=== PATIENT | female | born 1930 | race Caucasian/White ===

== ENCOUNTER 2016-07-31 15:58 | Emergency (ER) | payer MEDICARE ==
[2016-07-31 16:57] VITALS: BP 122/55
--- NOTE | 2016-07-31 17:21 | UC ---
Throat Pain/Nasal Miles HPI - HPI Summary HPI Summary: complaint of nasal congestion and cough that started approx 1 week ago cough has been worsening for the last 3 days producitve cough with thick sputum at times has been hearing wheezing for 2 days denies fever and chills denies shortness of breath and edema not taking any medications for symptoms - History of Current Complaint Chief Complaint: UCGeneralIllness Stated Complaint: URI Time Seen by Provider: 07/31/16 17:06 - Allergies/Home Medications Allergies/Adverse Reactions: Allergies Allergy/AdvReac Type Severity Reaction Status Date / Time Morphine Allergy Nausea And Verified 07/31/16 16:41 Vomiting PMH/Surg Hx/FS Hx/Imm Hx Endocrine History Of: Reports: Thyroid Disease Cardiovascular History Of: Reports: Hypertension - ON MEDICATION FOR Cancer History Of: Denies: Breast Cancer - Surgical History Surgical History: Yes Surgery Procedure, Year, and Place: RIGHT KNEE REPLACEMENT. LEFT KNEE REPLACEMENT. 1/2 RIB REMOVED. KNEE REVISION - Social History Alcohol Use: None Substance Use Type: None Smoking Status (MU): Former Smoker Amount Used/How Often: 1/2 PPD X 30 YEARS When Did the Patient Quit Smoking/Using Tobacco: 1982 - Immunization History Most Recent Influenza Vaccination: 2016 Review of Systems Constitutional: Negative Skin: Negative Eyes: Negative ENT: Nasal Discharge Respiratory: Cough Cardiovascular: Negative Gastrointestinal: Negative Genitourinary: Negative Motor: Negative Neurovascular: Negative Musculoskeletal: Negative Neurological: Negative Psychological: Negative All Other Systems Reviewed And Are Negative: Yes Physical Exam Triage Information Reviewed: Yes Appearance: No Pain Distress, Well-Nourished, Obese Vital Signs: Initial Vital Signs Temp 99 F 07/31/16 16:44 Pulse 68 07/31/16 16:44 Resp 20 07/31/16 16:44 BP 122/55 07/31/16 16:44 Pulse Ox 94 07/31/16 16:44 Vital Signs Reviewed: Yes Eyes: Positive: Conjunctiva Clear ENT: Positive: Pharyngeal erythema, Nasal congestion, Nasal drainage, TMs normal Neck: Positive: Supple, No Lymphadenopathy Respiratory: Positive: Decreased breath sounds, Wheezing - throughout Cardiovascular: Positive: RRR, No Murmur Abdomen Description: Positive: Nontender, Soft Bowel Sounds: Positive: Present Musculoskeletal: Positive: No Edema Neurological: Positive: Alert Psychological Exam: Normal Skin Exam: Normal Re-Evaluation - Re-Evaluation First Eval Change: Improved - less wheezing throughout Throat Pain/Nasal Course/Dx - Differential Dx/Diagnosis Differential Diagnosis/HQI/PQRI: URI, Other - bronchitis Provider Diagnoses: bronchitis Discharge - Discharge Plan Condition: Stable Disposition: HOME Prescriptions: Albuterol HFA INHALER* [Ventolin HFA Inhaler*] 2 puff INH Q4H PRN #1 mdi PRN Reason: Wheezing DOXYcycline CAP(*) [DOXYcycline 100MG CAP(*)] 100 mg PO BID #20 cap Spacer/Aerosol-Holding Chamber [Aerochamber Mv] 1 mis XX Q4HR #1 mis Patient Education Materials: Acute Bronchitis (ED), How to Use a Metered-Dose Inhaler and a Spacer (ED) Referrals: Zev Zhao MD [Primary Care Provider] - Additional Instructions: Please take antibiotic as directed Use your albuterol inhaler every 4-6 hours when needed for wheezing, shortness of breath or uncontrolled coughing. Increase fluids and rest Take acetaminophen or ibuprofen for fever or pain Please review your discharge instructions. If your symptoms do not improve please call your primary care provider or return to urgent care.
[2016-07-31] MEDS ORDERED: Albuterol/Ipratropium NEB.SOL* Albuterol 2.5 MG/Ipratropium 0.5 MG 3 ML INH ONE (17:28)
--- NOTE | 2016-07-31 18:29 | RAD ---
INDICATION: Cough COMPARISON: Chest x-ray dated September 15, 2015 TECHNIQUE: PA and lateral views of the chest were obtained. FINDINGS: The heart and mediastinum are normal in size and contour. Stable coarse calcification is seen overlying the aortic arch. The lungs are grossly clear. There is no evidence of large pleural effusion. Visualized bones are normal for the patient's age. There is no radiographic evidence of free air beneath the diaphragm IMPRESSION: No radiographic evidence of acute cardiopulmonary disease.
== END 2016-07-31 19:00 | disposition home or self-care (01) ==
LOC: UCEAST 15:58
DX: J40 Bronchitis, not specified as acute or chronic (principal); I10 Essential (primary) hypertension; E66.9 Obesity, unspecified; E07.9 Disorder of thyroid, unspecified; Z96.653 Presence of artificial knee joint, bilateral; Z87.891 Personal history of nicotine dependence; Z88.5 Allergy status to narcotic agent
CPT/HCPCS: 71020; 99212; A9270-GY; G0463

== ENCOUNTER 2017-11-11 07:10 | Emergency (ER) | payer MEDICARE ==
[2017-11-11 07:22] VITALS: BP 144/94
--- NOTE | 2017-11-11 07:28 | UC ---
Ear Complaint HPI - HPI Summary HPI Summary: An 87 y/o F presents to [facility] [place] with c/o intermittent inner and outer L ear pain onset yesterday. Denies rash, fever, eye pain, rhinorrhea, sore throat, cough, chest congestion. Pt took Motrin yesterday to no relief. PMHx: shingles across back. Pt states this does not feel similar to prev episodes of shingles. She has had a shingles shot. Pt lives alone in senior housing. This is SooYoung twila Medeiros, documenting for attending, Dr. Deuce Mccain MD. - History of Current Complaint Chief Complaint: UCEar Stated Complaint: EAR PAIN Time Seen by Provider: 11/11/17 07:19 Hx Obtained From: Patient Hx Last Menstrual Period: na Onset/Duration: Sudden Onset, Lasting Days - yesterday, Still Present Severity Currently: Severe Pain Intensity: 10 Pain Scale Used: 0-10 Numeric Alleviating Factors: Other (Noted In Comments) - neg: Motrin - Allergies/Home Medications Allergies/Adverse Reactions: Allergies Allergy/AdvReac Type Severity Reaction Status Date / Time morphine Allergy Intermediate Nausea Verified 11/11/17 07:23 PMH/Surg Hx/FS Hx/Imm Hx Previously Healthy: No - arthritis; Cardiovascular History: Hypertension - Surgical History Surgical History: Yes Surgery Procedure, Year, and Place: RIGHT KNEE REPLACEMENT. LEFT KNEE REPLACEMENT. 1/2 RIB REMOVED. KNEE REVISION - Family History Known Family History: Positive: Other - neg: breast CA - Social History Occupation: Retired Lives: Alone Alcohol Use: None Substance Use Type: None Smoking Status (MU): Former Smoker Amount Used/How Often: 1/2 PPD X 30 YEARS When Did the Patient Quit Smoking/Using Tobacco: 1982 - Immunization History Most Recent Influenza Vaccination: 2016 Review of Systems Constitutional: Other - neg: fever Skin: Other - neg: rash Eyes: Other - neg: eye pain ENT: Ear Ache - L ear pain, Other - neg: rhinorrhea, sore throat Respiratory: Other - neg: chest congestion, cough All Other Systems Reviewed And Are Negative: Yes Physical Exam - Summary Physical Exam Summary: General: well-appearing, intermittent periods of mild pain distress Skin: warm, color reflects adequate perfusion, dry, no visible rash, not tender to palpation Head: normal Eyes: EOMI, ELIO ENT: debris in L ear canal, TMs nml, L occipital parietal pain Neck: supple, nontender Respiratory: CTA, breath sounds present Cardiovascular: RRR Abdomen: soft, nontender Bowel: present Musculoskeletal: normal, strength/ROM intact Neurological: sensory/motor intact, A&O x3 Psychological: affect/mood appropriate Triage Information Reviewed: Yes Vital Signs: Initial Vital Signs Temp 99.9 F 11/11/17 07:16 Pulse 59 11/11/17 07:16 Resp 22 11/11/17 07:16 BP 144/94 11/11/17 07:16 Pulse Ox 95 11/11/17 07:16 Vital Signs Reviewed: Yes Diagnostics - Laboratory Diagnostic Studies Completed/Ordered: BRAIN CT IMPRESSION, as read by radiologist: No acute intracranial pathology. [facility] physician has reviewed this report and agrees. Re-Evaluation - Re-Evaluation 1 Re-Evaluation Time: 08:28 Change: Improved - midly Comment: Discussed img results with pt. Pt voiced understanding. Pt thinks the Tylenol helped. Ear Complaint Course/Dx - Course Course Of Treatment: BP noted and advised to follow up with PCP. Medications reviewed. Allergies noted. POSSSIBLE SHINGLES BASED ON THE NATURE OF THE PAIN. DISCUSSED THIS WITH THE PATIENT. RX OE EAR ABX AND VALACYCLOVIR PO. F/U PMD; RECHECK SOONER IF WORSE. - Differential Dx/Diagnosis Provider Diagnoses: LEFT OTITIS EXTERNA Discharge - Sign-Out/Discharge Documenting (check all that apply): Patient Departure - Discharge Plan Condition: Stable Disposition: HOME Prescriptions: Ciprofloxacin/Hydrocortisone [Cipro Hc Otic Suspension] 4 drop OT BID #10 ml Valacyclovir HCl [Valacyclovir] 1 gm PO TID #21 tab Patient Education Materials: Otitis Externa (ED), Acute Headache (ED) Referrals: Zev Zhao MD [Primary Care Provider] - Additional Instructions: FOLLOW UP WITH YOUR DOCTOR. YOU ARE BEING TREATED FOR BOTH AND EXTERNAL EAR CANAL INFECTION AND SHINGLES. GET RECHECKED FOR ANY WORSENING OF YOUR CONDITION OR QUESTIONS OR CONCERNS. Your blood pressure was elevated during todays visit; please follow up with your primary care provider within a week for further evaluation. - Billing Disposition and Condition Condition: STABLE Disposition: Home
[2017-11-11] MEDS ORDERED: Acetaminophen TAB* 325 MG PO ONE (07:33)
--- NOTE | 2017-11-11 08:21 | RAD ---
HISTORY: left occipital pain COMPARISONS: December 20, 2010 TECHNIQUE: Multiple contiguous axial CT scans were obtained of the head without intravenous contrast. FINDINGS: HEMORRHAGE/INFARCT: There is no hemorrhage or acute infarct. MASSES/SHIFT: There is no mass or shift. EXTRA-AXIAL SPACES: There are no extra-axial fluid collections. SULCI AND VENTRICLES: The sulci and ventricles are normal in size and position for the patient's stated age. CEREBRUM: There are no focal parenchymal abnormalities. BRAINSTEM: There are no focal parenchymal abnormalities. CEREBELLUM: There are no focal parenchymal abnormalities. VESSELS: The vessels are grossly normal. PARANASAL SINUSES: The paranasal sinuses are clear. ORBITS: The orbits are unremarkable. BONES AND SOFT TISSUE: No bone or soft tissue abnormalities are noted. OTHER: None IMPRESSION: NO ACUTE INTRACRANIAL PATHOLOGY.
== END 2017-11-11 08:44 | disposition home or self-care (01) ==
LOC: UCEAST 07:10
DX: H60.92 Unspecified otitis externa, left ear (principal); I10 Essential (primary) hypertension; Z87.891 Personal history of nicotine dependence; Z88.5 Allergy status to narcotic agent
CPT/HCPCS: 70450; 99212; A9270-GY; G0463

== ENCOUNTER 2018-06-24 10:14 | Emergency (ER) | payer MEDICARE ==
--- OUTSIDE RECORDS SUMMARY | 2018-06-24 10:19 | XMS REPORT | Continuity of Care Document ---
:1930 External Reference #:[id number] Author Name Bonny Gimenez Care Team Providers Name Role Phone Zev Zhao III, MD Primary Care Physician Unavailable Payers Date Identification Numbers Payment Provider Subscriber Expires: 2016 Policy Number: [id number] Medicare Faizan Moira Bai PayID: [id number] [address] [place] [address] Policy Number: [id number] [facility] Today Options Faizan B Yoana PayID: [id number] [address] [address] Attn: [place] [address] Advance Directives Description No Information Available Problems Date Description Provider Status Onset: 01/16/2011 Pure hypercholesterolemia Zev Zhao M.D. Active Onset: 12/01/2010 Type 2 diabetes mellitus Zev Zhao M.D. Active Onset: 12/01/2010 Benign essential hypertension Zev Zhao M.D. Active Onset: 12/01/2010 Hypothyroidism Zev Zhao M.D. Active Onset: 12/22/2010 Benign paroxysmal positional vertigo Zev Zhao M.D. Active Onset: 09/15/2015 Essential hypertension Zev Zhao M.D. Active Family History Description No Information Available Social History Type Date Description Comments Sex Unknown Marital Status Cigarette Use Quit 27 Years Ago ETOH Use Denies alcohol use Tobacco Use Start: Unknown End: Patient is a former Unknown smoker Smoking Status Reviewed: 06/16/18 Patient is a former smoker Exercise Exercises sporadically active around her Type/Frequency house Allergies, Adverse Reactions, Alerts Date Description Reaction Status Severity Comments 01/06/2007 Morphine Active Nausea Medications Medication Date Status Form Strength Qnty SIG Indications Ordering Provider Irbesartan-Hydroch 11/22 Active Tablets 150-12.5m 90tab 1 by mouth Zev Wang lorothiazide /2017 g s every day Patrick Zhao Benzonatate 08/01 Active Capsules 100mg 30cap 1-2 tab by J20.9 Zev Wang /2016 s mouth Cece, three M.D. times a day as needed for cough Furosemide 01/04 Active Tablets 20mg 24tab Take One Zev EPete s Tablet By Jerry Zhao as M.D. Directed Three Times A Week Blood Pressure 10/01 Active Kit 1unit dx I10 I10 Zev Wang Monitor s Cece, Automatic With M.DPete Large Cuff Levothyroxine 11/08 Active Tablets 50mcg 90tab Take One eZv Wang Sodium s Tablet By Cece Mouth Once M.D. Daily Potassium Chloride 05/25 Active Tablets 8Meq 270ta Take 3 Zev E. ER ER bs Tablets By Cece, Mouth Once M.D. Daily Amlodipine 02/20 Active Tablets 10mg 90tab take one Zev Wang Besylate s tablet by Cece, mouth once M.D. daily Simvastatin 03/04 Active Tablets 10mg 90tab Take One Zev E. /2007 s Tablet By Cece Mouth Once M.D. Daily AT Bedtime Oscal 500/200 D-3 09/01 Active Tablets 200D-3 60tab qd Zev EPete /2007 s Patrick Zhao Multi-Vitamin Active Tablets 1 PO qd Zev E. / Patrick Zhao Vit C Active Tablets 250mg 1 PO qd Zev E. / Patrick Zhao Fish Oil Burp-Less Active Capsules 1000mg 1 by mouth Unknown /0000 every day Oxybutynin Active Tablets 5mg take one Unknown Chloride tablet by mouth twice a day Benzonatate 09/14 Hx Capsules 100mg 30cap 1-2 tab by J20.9 Zev EPete /2015 s mouth Cece, - three M.D. 10/09 times day as needed Proair HFA 09/14 Hx Aerosol 108(90Bas 1unit 2 puffs by J20.9 Zev Wang e) s mouth four Cece, - mcg/Act times a M.D. 11/25 day needed Valsartan-Hydrochl 08/29 Hx Tablets 160-25mg 90tab take one Zev Wang orothiazide s tablet by Cece, - mouth once M.D. 11/22 Valsartan/Hydrochl 06/25 Hx Tablets 160-25mg 90tab 1 po qd Zev Wang orothiazide Isaias Inman M.D. 08/29 Norvasc 02/05 Hx Tablets 10mg 30tab 1 po qd Zev Wang /2006 Isaias Inman M.D. 02/20 Medrol Dosepak 01/09 Hx Tablets 4mg 1tabs per Zev Wang /2006 Isaias Real M.D. 02/05 Zyrtec 01/06 Hx Tablets 10mg 7tabs 1 po qd Zev Wang prn Isaias Zhao M.D. 09/01 Synthroid 11/21 Hx Tablets 50McG 90tab 1 po qd Zev Wang /2006 Isaias Inman M.D. 11/08 E-400 Hx Capsules 400Unit Other /0000 Physician - Practices 11/12 Potassium Chloride Hx Tablets 8Meq 270ta 3 PO qd Zev E. SR / ER bs Isaias Zhao M.D. 05/25 Lorazepam Hx Tablets 0.5mg 20tab 1 po tid Unknown /0000 s prn - dizziness 06/04 Diovan Hx Tablets 160mg 90tab Take 1 Zev E. / s Tablet By Cece - Mouth Once M.D. 06/25 Hydrochlorothiazid Hx Tablets 50mg 90tab take 1 Zev E. e s tablet by Cece, - mouth once M.D. 06/25 Vesicare Hx Tablets 5mg 1 by mouth Unknown /0000 every day - 06/16 Doxycycline 00 Hx Capsules 100mg one tablet Unknown Hyclate /0000 twice - daily for 04/10 10 days. Ventolin HFA Hx Aerosol 108(90Bas 2 puffs by Unknown /0000 e) mouth four - mcg/Act times a 11/25 day needed Immunizations CPT Code Status Date Vaccine Lot # [id number] Given 01/31/2018 Fluzone High Dose 17186 Given 01/18/2017 Influenza Virus Vaccine, Quadrivalent, Split, Preservative Free 68304 Given 07/26/2016 Zoster (Zostavax) 79868 Given 01/20/2015 Influenza Virus Vaccine, Quadrivalent, Split, Preservative Free 24715 Given 10/04/2014 Pneumococcal Conjugate Vaccine 13 Valent For [id number] Intramuscular Use 36508 Given 01/04/2014 Fluzone High Dose Q2038 Given 12/25/2012 Fluzone Vaccine 53695 Given 06/24/2012 Tdap - Tetanus/Diptheria/Acellular Pertussis [id number] Q2038 Given 01/09/2012 Fluzone Vaccine [id number] 03473 Given 01/08/2011 Influenza Virus 3Yrs & Over 20374 Given 05/05/2009 Influenza Virus Vaccine, Pandemic Formulation 14983 Given 05/05/2009 Administration Swine Flu Shot 75541 Given 01/15/2008 Influenza Virus 3Yrs & Over 66548 Given 02/05/2007 Influenza Virus 3Yrs & Over 41057 Given 01/20/2002 Pneumovax (History By Patient) 90586 Given 05/09/2001 Td (History By Patient) Vital Signs Date Vital Result Comment 06/16/2018 3:59pm Height 60.5 inches 5'0.50" Weight 232.00 lb Heart Rate 68 /min BP Systolic Sitting 145 mmHg 142/74 BP Diastolic Sitting 78 mmHg 142/74 Respiratory Rate 16 /min BMI (Body Mass Index) 44.6 kg/m2 12/05/2017 3:10pm Height 60.5 inches 5'0.50" Weight 234.00 lb Heart Rate 60 /min BP Systolic Sitting 122 mmHg BP Diastolic Sitting 74 mmHg O2 % BldC Oximetry 96 % BMI (Body Mass Index) 44.9 kg/m2 11/26/2017 3:53pm Height 61 inches 5'1" Weight 240.00 lb Heart Rate 50 /min BP Systolic 110 mmHg BP Diastolic 68 mmHg BP Systolic Sitting 110 mmHg BP Diastolic Sitting 68 mmHg O2 % BldC Oximetry 96 % BMI (Body Mass Index) 45.3 kg/m2 04/11/2017 9:36am Weight 230.00 lb Heart Rate 67 /min BP Systolic Sitting 118 mmHg BP Diastolic Sitting 70 mmHg Body Temperature 97.3 F O2 % BldC Oximetry 97 % 10/10/2016 11:06am Weight 226.00 lb Heart Rate 56 /min BP Systolic Sitting 132 mmHg BP Diastolic Sitting 64 mmHg 08/01/2016 2:31pm Weight 220.00 lb Heart Rate 72 /min BP Systolic Sitting 128 mmHg BP Diastolic Sitting 84 mmHg Respiratory Rate 14 /min Body Temperature 97.6 F O2 % BldC Oximetry 96 % 04/10/2016 1:58pm Weight 222.00 lb Heart Rate 60 /min BP Systolic Sitting 110 mmHg BP Diastolic Sitting 70 mmHg O2 % BldC Oximetry 96 % 01/05/2016 10:55am Weight 228.00 lb Heart Rate 68 /min BP Systolic Sitting 154 mmHg BP Diastolic Sitting 62 mmHg Body Temperature 97.7 F O2 % BldC Oximetry 97 % 11/03/2015 4:33pm Weight 229.00 lb Heart Rate 66 /min BP Systolic Sitting 164 mmHg BP Diastolic Sitting 74 mmHg Body Temperature 96.3 F 10/10/2015 1:29pm Height 61 inches 5'1" Weight 225.00 lb Heart Rate 66 /min BP Systolic Sitting 122 mmHg BP Diastolic Sitting 64 mmHg Body Temperature 97.8 F O2 % BldC Oximetry 96 % BMI (Body Mass Index) 42.5 kg/m2 09/15/2015 11:47am Weight 218.00 lb Heart Rate 66 /min BP Systolic Sitting 132 mmHg BP Diastolic Sitting 72 mmHg Body Temperature 97.0 F O2 % BldC Oximetry 93 % 10/25/2014 12:10pm Weight 228.00 lb Heart Rate 68 /min BP Systolic Sitting 138 mmHg BP Diastolic Sitting 64 mmHg Body Temperature 97.9 F O2 % BldC Oximetry 98 % 10/08/2014 1:10pm Heart Rate 77 /min BP Systolic Sitting 110 mmHg BP Diastolic Sitting 66 mmHg 10/04/2014 9:24am Height 61 inches 5'1" Weight 226.00 lb Heart Rate 60 /min BP Systolic Sitting 126 mmHg BP Diastolic Sitting 80 mmHg O2 % BldC Oximetry 98 % BMI (Body Mass Index) 42.7 kg/m2 04/02/2014 9:26am Weight 228.75 lb Heart Rate 64 /min BP Systolic Sitting 132 mmHg BP Diastolic Sitting 70 mmHg 10/01/2013 9:54am Height 60.5 inches 5'0.50" Weight 228.75 lb Heart Rate 68 /min BP Systolic Sitting 136 mmHg BP Diastolic Sitting 72 mmHg Body Temperature 96.7 F BMI (Body Mass Index) 43.9 kg/m2 06/25/2013 9:55am Height 60.5 inches 5'0.50" Weight 232.00 lb Heart Rate 82 /min BP Systolic Sitting 140 mmHg BP Diastolic Sitting 82 mmHg Body Temperature 97.0 F O2 % BldC Oximetry 98 % BMI (Body Mass Index) 44.6 kg/m2 12/25/2012 1:14pm Weight 223.50 lb Heart Rate 70 /min BP Systolic Sitting 129 mmHg BP Diastolic Sitting 66 mmHg 06/24/2012 1:59pm Height 60.5 inches 5'0.50" Weight 225.00 lb Heart Rate 80 /min BP Systolic Sitting 140 mmHg BP Diastolic Sitting 72 mmHg BMI (Body Mass Index) 43.2 kg/m2 12/03/2011 10:47am Height 60.5 inches 5'0.50" Weight 231.00 lb Heart Rate 72 /min BP Systolic Sitting 126 mmHg BP Diastolic Sitting 58 mmHg BMI (Body Mass Index) 44.4 kg/m2 06/04/2011 1:55pm Height 60.5 inches 5'0.50" Weight 229.50 lb Heart Rate 80 /min BP Systolic Sitting 118 mmHg BP Diastolic Sitting 56 mmHg BMI (Body Mass Index) 44.1 kg/m2 12/22/2010 11:58am Height 60.75 inches 5'0.75" Weight 230.00 lb Heart Rate 76 /min BP Systolic Sitting 152 mmHg l BP Diastolic Sitting 72 mmHg l BMI (Body Mass Index) 43.8 kg/m2 12/01/2010 10:38am Weight 230.00 lb Heart Rate 76 /min BP Systolic Sitting 150 mmHg BP Diastolic Sitting 60 mmHg 05/19/2010 11:35am Weight 226.00 lb Heart Rate 77 /min BP Systolic Sitting 142 mmHg BP Diastolic Sitting 80 mmHg O2 % BldC Oximetry 97 % 11/18/2009 10:49am Weight 226.00 lb Heart Rate 75 /min BP Systolic Sitting 144 mmHg BP Diastolic Sitting 80 mmHg 05/10/2009 2:18pm Weight 226.00 lb Heart Rate 68 /min BP Systolic Sitting 110 mmHg BP Diastolic Sitting 62 mmHg 05/05/2009 9:41am Weight 224.00 lb Heart Rate 78 /min BP Systolic Sitting 146 mmHg BP Diastolic Sitting 60 mmHg 11/04/2008 11:17am Weight 224.00 lb Heart Rate 68 /min BP Systolic Sitting 144 mmHg BP Diastolic Sitting 78 mmHg 08/02/2008 10:41am Height 60.75 inches 5'0.75" Weight 222.00 lb Heart Rate 60 /min BP Systolic Sitting 128 mmHg BP Diastolic Sitting 72 mmHg BMI (Body Mass Index) 42.3 kg/m2 08/02/2008 10:37am Height 60.75 inches 5'0.75" 07/12/2008 10:57am Heart Rate 64 /min BP Systolic Sitting 134 mmHg BP Diastolic Sitting 58 mmHg 05/06/2008 10:19am Height 60.75 inches 5'0.75" Weight 221.00 lb Heart Rate 64 /min BP Systolic Sitting 138 mmHg BP Diastolic Sitting 68 mmHg BMI (Body Mass Index) 42.1 kg/m2 03/04/2008 11:17am Height 60.75 inches 5'0.75" Weight 219.00 lb Heart Rate 60 /min BP Systolic Sitting 152 mmHg BP Diastolic Sitting 76 mmHg BMI (Body Mass Index) 41.7 kg/m2 09/02/2007 10:40am Height 60.75 inches 5'0.75" Weight 218.00 lb Heart Rate 72 /min BP Systolic Sitting 156 mmHg BP Diastolic Sitting 70 mmHg BMI (Body Mass Index) 41.5 kg/m2 03/04/2007 10:50am Height 60.75 inches 5'0.75" Weight 218.00 lb Heart Rate 68 /min BP Systolic Sitting 140 mmHg BP Diastolic Sitting 68 mmHg BMI (Body Mass Index) 41.5 kg/m2 02/05/2007 9:47am Height 60.75 inches 5'0.75" Weight 217.50 lb Heart Rate 80 /min BP Systolic Sitting 152 mmHg BP Diastolic Sitting 80 mmHg BMI (Body Mass Index) 41.4 kg/m2 01/06/2007 11:19am Height 60.75 inches 5'0.75" Weight 215.00 lb Heart Rate 68 /min BP Systolic Sitting 166 mmHg Difficult To Hear BP Diastolic Sitting 88 mmHg Difficult To Hear BMI (Body Mass Index) 41.0 kg/m2 11/12/2006 9:38am Weight 217.00 lb Heart Rate 68 /min BP Systolic Sitting 152 mmHg BP Diastolic Sitting 80 mmHg Results Test Date Facility Test Result H/L Range Note Urine Microalbumin 05/29/2018 [facility] Ur Microalbumin < 15.[address] (mg/L) [place] [address] [phone] Urine Creatinine 140.36 mg/dL Urine Microalbumin/Creatinine TNP <31 1 Comp Metabolic Panel 05/29/2018 [facility] Sodium 140 mmol/L N 135-[address] [place] [address] [phone] Potassium 3.9 mmol/L N 3.5-5.0 Chloride 101 mmol/L N 101-111 Co2 Carbon Dioxide 32 mmol/L N 22-32 Anion Gap 7 mmol/L N 2-11 Glucose 144 mg/dL High 70-100 Blood Urea Nitrogen 21 mg/dL N 6-24 Creatinine 0.97 mg/dL High 0.51-0.95 BUN/Creatinine Ratio 21.6 High 8-20 Calcium 9.5 mg/dL N 8.6-10.3 Total Protein 6.5 g/dL N 6.4-8.9 Albumin 4.0 g/dL N 3.2-5.2 Globulin 2.5 g/dL N 2-4 Albumin/Globulin Ratio 1.6 N 1-3 Total Bilirubin 0.60 mg/dL N 0.2-1.0 Alkaline Phosphatase 58 U/L N 34-104 Alt 16 U/L N 7-52 Ast 19 U/L N 13-39 Egfr Non- 54.2 >60 Egfr 65.6 >60 2 Laboratory test 05/29/2018 [facility] Glucose 145 mg/dL High 70-[address] [place] [address] [phone] Lipid Profile 12/02/2017 [facility] Triglycerides 119 mg/dL 3 (Trig/Chol/HDL) [address] [place] [address] [phone] Cholesterol 157 mg/dL 4 HDL Cholesterol 60.8 mg/dL 5 LDL Cholesterol 72 mg/dL 6 Laboratory test 12/02/2017 [facility] Hemoglobin A1c 6.8 % High 4.0-5.6 [address] (Glyco HGB) [place] [address] [phone] Comp Metabolic 04/11/2017 [facility] Sodium 138 N 133-[address] mmol/[place] [address] [phone] Potassium 3.8 mmol/L N 3.5-5.0 Chloride 102 mmol/L N 101-111 Co2 Carbon Dioxide 31 mmol/L N 22-32 Anion Gap 5 mmol/L N 2-11 Glucose 132 mg/dL High 70-100 Blood Urea Nitrogen 24 mg/dL N 6-24 Creatinine 0.90 mg/dL N 0.51-0.95 BUN/Creatinine Ratio 26.7 High 8-20 Calcium 9.3 mg/dL N 8.6-10.3 Total Protein 6.7 g/dL N 6.4-8.9 Albumin 4.0 g/dL N 3.2-5.2 Globulin 2.7 g/dL N 2-4 Albumin/Globulin Ratio 1.5 N 1-3 Total Bilirubin 0.60 mg/dL N 0.2-1.0 Alkaline Phosphatase 44 U/L N 34-104 Alt 15 U/L N 7-52 Ast 21 U/L N 13-39 Egfr Non- 59.2 >60 Egfr 76.2 >60 8 Laboratory test 04/11/2017 [facility] TSH (Thyroid 2.34 N 0.34 -5.[address] Stim Horm) mcIU/[place] [address] [phone] Urine 04/11/2017 [facility] Ur Microalbumin < 15.[address] (mg/L) mg/[place] [address] [phone] Urine Creatinine 105.43 mg/dL Urine Microalbumin/Creatinine TNP ug/mg <31 10 Comp Metabolic Panel 10/19/2016 [facility] Sodium 138 mmol/L N 133-[address] [place] [address] [phone] Potassium 3.9 mmol/L N 3.5-5.0 Chloride 101 mmol/L N 101-111 Co2 Carbon Dioxide 30 mmol/L N 22-32 Anion Gap 7 mmol/L N 2-11 Glucose 145 mg/dL High 70-100 Blood Urea Nitrogen 21 mg/dL N 6-24 Creatinine 0.86 mg/dL N 0.51-0.95 BUN/Creatinine Ratio 24.4 High 8-20 Calcium 9.4 mg/dL N 8.6-10.3 Total Protein 6.3 g/dL Low 6.4-8.9 Albumin 3.7 g/dL N 3.2-5.2 Globulin 2.6 g/dL N 2-4 Albumin/Globulin Ratio 1.4 N 1-3 Total Bilirubin 0.60 mg/dL N 0.2-1.0 Alkaline Phosphatase 44 U/L N 34-104 Alt 14 U/L N 7-52 Ast 19 U/L N 13-39 Egfr Non- 62.4 N >60 Egfr 80.3 N >60 11 Laboratory 10/19/2016 [facility] TSH (Thyroid Stim 2.24 N 0.34 -5.[address] Horm) mcIU/[place] [address] [phone] Laboratory 10/10/2016 [facility] Hemoglobin A1c 6.4 5-7 test finding Lipid Profile 03/26/2016 [facility] Triglycerides 109 mg/dL N 12 (Trig/Chol/HDL [address] ) [place] [address] [phone] Cholesterol 157 mg/dL N 13 HDL Cholesterol 64.1 mg/dL N 14 LDL Cholesterol 71 mg/dL N 15 Urine Microalbumin 03/26/2016 [facility] Urine Creatinine 175.18 mg/dL N Random [address] [place] [address] [phone] Ur Microalbumin (mg/L) < 15.0 mg/L N Urine Microalbumin/Creatinine TNP ug/mg N <31 16 Laboratory test 03/26/2016 [facility] Hemoglobin A1c 6.3 % High Less than [address] (Glyco HGB) 6.0 [place] [address] [phone] Basic Metabolic 10/06/2015 [facility] Sodium 139 N 133-[address] mmol/[place] [address] [phone] Potassium 3.9 mmol/L N 3.5-5.0 Chloride 100 mmol/L Low 101-111 Co2 Carbon Dioxide 31 mmol/L N 22-32 Anion Gap 8 mmol/L N 2-11 Glucose 127 mg/dL High 70-100 Blood Urea Nitrogen 19 mg/dL N 6-24 Creatinine 0.86 mg/dL N 0.51-0.95 BUN/Creatinine Ratio 22.1 High 8-20 Calcium 9.3 mg/dL N 8.6-10.3 Egfr Non- 62.6 N >60 Egfr 80.5 N >60 18 Laboratory test 10/06/2015 [facility] Hemoglobin A1c 6.6 % High Less than [address] (Glyco HGB) 6.0 [place] [address] [phone] Free T4 (Free Thyroxine) 1.03 ng/dL N 0.61-1.12 20 TSH (Thyroid Stim Horm) 2.61 ?IU/mL N 0.34-5.60 21 Comp Metabolic Panel 02/08/2015 [facility] Sodium 138 mmol/L N 133-[address] [place] [address] [phone] Potassium 3.8 mmol/L N 3.5-5.0 Chloride 100 mmol/L Low 101-111 Co2 Carbon Dioxide 32 mmol/L N 22-32 Anion Gap 6 mmol/L N 2-11 Glucose 122 mg/dL High 70-100 Blood Urea Nitrogen 23 mg/dL N 6-24 Creatinine 0.78 mg/dL N 0.51-0.95 BUN/Creatinine Ratio 29.5 High 8-20 Calcium 9.7 mg/dL N 8.6-10.3 Total Protein 6.6 g/dL N 6.4-8.9 Albumin 4.1 g/dL N 3.2-5.2 Globulin 2.5 g/dL N 2-4 Albumin/Globulin Ratio 1.6 N 1-3 Total Bilirubin 0.60 mg/dL N 0.2-1.0 Alkaline Phosphatase 50 U/L N 34-104 Alt 15 U/L N 7-52 Ast 20 U/L N 13-39 Egfr Non- 70.2 N >60 Egfr 90.3 N >60 22 Urine Microalbumin 02/08/2015 [facility] Ur Microalbumin < 5.0 mg/L N Random [address] (mg/L) [place] [address] [phone] Urine Creatinine 84.66 mg/dL N Urine Microalbumin/Creatinine TNP ug/mg N <31 23 Laboratory test 02/08/2015 [facility] Hemoglobin A1c 6.5 % High Less [address] (Glyco HGB) than 6.0 [place] [address] [phone] Lipid Profile 02/08/2015 [facility] Triglycerides 114 N 25 (Trig/Chol/HDL) [address] mg/[place] [address] [phone] Cholesterol 150 mg/dL N 26 HDL Cholesterol 59.3 mg/dL N 27 LDL Cholesterol 68 mg/dL N 28 Laboratory test 02/08/2015 [facility] TSH (Thyroid 5.30 ?IU/mL N 0.34-5.[address] Stim Horm) [place] [address] [phone] Free T4 (Free Thyroxine) 0.90 ng/mL N 0.61-1.12 Laboratory test finding 10/25/2014 C Reactive Protein 3.99 mg/L N < 5.00 29 Erythrocyte Sed Rate 38 mm/Hr N 0-40 Creatine Kinase(CK) 31 U/L N 10-223 Laboratory test 09/30/2014 [facility] Hemoglobin A1c 6.4 % High Less [address] (Glyco HGB) than 6.0 [place] [address] [phone] Lipid Profile 03/19/2014 [facility] Triglycerides 142 N 31 (Trig/Chol/HDL) [address] mg/[place] [address] [phone] Cholesterol 157 mg/dL N 32 HDL Cholesterol 57.3 mg/dL N 33 LDL Cholesterol 71 mg/dL N 34 CBC Auto Diff 03/19/2014 [facility] White Blood 5.2 10^3/uL N 4.8-10.[address] [place] [address] [phone] Red Blood Count 4.48 10^6/uL N 4.0-5.4 Hemoglobin 13.7 g/dL N 12.0-16.0 Hematocrit 40 % N 35-47 Mean Corpuscular Volume 90 fL N 80-97 Mean Corpuscular Hemoglobin 31 pg N 27-31 Mean Corpuscular HGB Conc 34 g/dL N 31-36 Red Cell Distribution Width 14 % N 10.5-15 Platelet Count 181 10^3/uL N 150-450 Mean Platelet Volume 8 um3 N 7.4-10.4 Abs Neutrophils 2.9 10^3/uL N 1.5-7.7 Abs Lymphocytes 1.8 10^3/uL N 1.0-4.8 Abs Monocytes 0.4 10^3/uL N 0-0.8 Abs Eosinophils 0.2 10^3/uL N 0-0.6 Abs Basophils 0 10^3/uL N 0-0.2 Abs Nucleated RBC 0 10^3/uL N Granulocyte % 54.7 % N 38-83 Lymphocyte % 34.5 % N 25-47 Monocyte % 7.0 % N 1-9 Eosinophil % 3.2 % N 0-6 Basophil % 0.6 % N 0-2 Nucleated Red Blood Cells % 0 N Comp Metabolic Panel 03/19/2014 [facility] Sodium 138 mmol/L N 133-[address] [place] [address] [phone] Potassium 3.8 mmol/L N 3.5-5.0 35 Chloride 101 mmol/L N 101-111 Co2 Carbon Dioxide 30 mmol/L N 22-32 Anion Gap 7 mmol/L N 2-11 Glucose 128 mg/dL High 70-100 Blood Urea Nitrogen 22 mg/dL N 6-24 Creatinine 0.83 mg/dL N 0.51-0.95 BUN/Creatinine Ratio 26.5 High 8-20 Calcium 9.2 mg/dL N 8.6-10.3 Total Protein 6.5 g/dL N 6.4-8.9 Albumin 4.0 g/dL N 3.2-5.2 Globulin 2.5 g/dL N 2-4 Albumin/Globulin Ratio 1.6 N 1-3 Total Bilirubin 0.60 mg/dL N 0.2-1.0 Alkaline Phosphatase 46 U/L N 34-104 Alt 16 U/L N 7-52 Ast 19 U/L N 13-39 Egfr Non- 65.5 N >60 Egfr 84.2 N >60 36 Laboratory test 03/19/2014 [facility] Hemoglobin A1c 6.6 % High Less [address] than 6[address] [place] [address] [phone] Urine 03/19/2014 [facility] Ur Microalbumin 5.0 N Microalbumin [address] (mg/L) mg/[place] [address] [phone] Urine Creatinine 127.93 mg/dL N Urine Microalbumin/Creatinine 3.9 N Less Than 31 Laboratory test 03/19/2014 [facility] TSH (Thyroid 4.49 N 0.34 -5.[address] Stimulating IU/[place] [address] Horm) [phone] Laboratory test 06/19/2013 [facility] Hemoglobin A1c 6.6 % High Less than [address] 6[address] [place] [address] [phone] Urine 06/19/2013 [facility] Ur Microalbumin 5.0 <30 [address] (mg/L) mg/dL Random [place], [place] [id number] [phone] Urine Creatinine 146.78 mg/dL Urine Microalbumin/Creatinine 3.4 Less Than 31 CBC Auto Diff 12/18/2012 [facility] White Blood 5.5 10^3/uL 4.8-10.[address] [place] [address] [phone] Red Blood Count 4.55 10^6/uL 4.0-5.4 Hemoglobin 13.5 g/dL 12.0-16.0 Hematocrit 42 % 35-47 Mean Corpuscular Volume 92 fL 80-97 Mean Corpuscular Hemoglobin 30 pg 27-31 Mean Corpuscular HGB Conc 32 g/dL 31-36 Red Cell Distribution Width 14 % 10.5-15 Platelet Count 180 10^3/uL 150-450 Mean Platelet Volume 10 um3 7.4-10.4 Abs Neutrophils 2.7 10^3/uL 1.5-7.7 Abs Lymphocytes 2.2 10^3/uL 1.0-4.8 Abs Monocytes 0.4 10^3/uL 0-0.8 Abs Eosinophils 0.2 10^3/uL 0-0.6 Abs Basophils 0 10^3/uL 0-0.2 Abs Nucleated RBC 0 10^3/uL Neutrophil % 54 % 38-83 Lymphocytes % 36 % 25-47 Monocytes % 4 % 0-13 Eosinophils % 3 % 0-6 Reactive Lymph % 3 % 0-6 RBC Morphology Normal Normal Comp Metabolic Panel 12/18/2012 [facility] Sodium 138 mmol/L 133-[address] [place] [address] [phone] Potassium 3.8 mmol/L 3.5-5.0 Chloride 98 mmol/L Low 101-111 Co2 Carbon Dioxide 33.0 mmol/L High 22-32 Anion Gap 7.0 mmol/L 2-11 Glucose 126 mg/dL High 70-100 Blood Urea Nitrogen 15 mg/dL 6-24 Creatinine 0.80 mg/dL 0.50-1.40 BUN/Creatinine Ratio 18.8 8-20 Calcium 9.4 mg/dL 8.1-9.9 Total Protein 6.2 g/dL 6.2-8.1 Albumin 3.7 g/dL 3.2-5.2 Globulin 2.5 g/dL 2-4 Albumin/Globulin Ratio 1.5 1-3 Total Bilirubin 0.6 mg/dL 0.4-1.5 Alkaline Phosphatase 44 U/L 30-110 Alt 16 U/L 14-54 Ast 22 U/L 12-42 Egfr Non- 68.5 >60 Egfr 88.1 >60 40 Laboratory test 12/18/2012 [facility] Hemoglobin A1c 6.5 % High Less than [address] 6[address] [place], [place] [id number] [phone] Lipid Profile 12/18/2012 [facility] Triglycerides 176 40-200 (Trig/Chol/HDL) [address] mg/dL [place], [place] [id number] [phone] Cholesterol 153 mg/dL Less than 200 HDL Cholesterol 58 mg/dL 40-60 42 Cholesterol/HDL Ratio 2.6 Average 1-4.44 LDL Cholesterol 59.8 Less Than 100 43 Laboratory test 12/18/2012 [facility] TSH (Thyroid 2.17 0.34- 5.60 [address] Stimulating miu/[place] [address] Horm) [phone] Urine 06/17/2012 [facility] Ur Microalbumin 1.0 mg/L [address] (Mg/L) Random [place], [place] [id number] [phone] Urine Creatinine 111.8 mg/dL Urine Microalbumin/Creatinine 0.9 ug/mg Less Than 31 Laboratory test 06/17/2012 [facility] [employer] [facility] Hemoglobin A1c 6.3 5-7 finding Laboratory test 12/03/2011 [facility] In House Hemoglobin A1c 6.4 5-7 finding Lipid Profile 11/27/2011 [facility] Triglyceride 150 mg/dL 40 -200 (Trig/Chol/HDL) [address] [place] [address] [phone] Cholesterol 161 mg/dL Less Than 200 46 High Density Lipoprotein 54 mg/dL 40-60 47 Cholesterol/HDL Ratio 2.98 AVERAGE 1-4.44 Low Density Lipoprotein 77 mg/dL Less Than 100 48 Comp Metabolic Panel 11/27/2011 [facility] Sodium 137 mmol/L 135-145 [address] [place] [address] [phone] Potassium 3.7 mmol/L 3.5-5.0 Chloride 101 mmol/L 101-111 Co2 (Carbon Dioxide) 30.0 mmol/L 22-32 Anion Gap 6.0 mmol/L 2-11 49 Glucose 124 mg/dL High 70-100 BUN 20 mg/dL 6-24 Creatinine 0.9 mg/dL 0.50-1.40 One Over Creatinine 1.11 BUN/Creatinine Ratio 22.2 High 8-20 Calcium 9.6 mg/dL 8.1-9.9 Total Protein 6.5 GM/DL 6.2-8.1 Albumin 3.8 GM/DL 3.2-5.2 Globulin 2.7 GM/DL 2-4 Albumin/Globulin Ratio 1.4 1-3 Bilirubin Total 0.8 mg/dL 0.4-1.5 50 Alkaline Phosphatase 51 U/L 30-110 Alt (SGPT) 18 U/L 14-54 Ast (Sgot) 23 U/L 12-42 eGFR Non- 59.9 > 60 eGFR 77.1 > 60 51 Laboratory test 11/27/2011 [facility] Hemoglobin A1c 6.4 % High Less Than [address] [place] [address] [phone] TSH 2.34 MIU/ML 0.34-5.60 Laboratory test 06/04/2011 [facility] Hemoglobin A1c 6.6 5-7 finding CBC Auto Diff 12/20/2010 [facility] White Blood Count 6.5 CUMM 4.8-10.8 [address] [place] [address] [phone] Red Cell Count 4.40 CUMM 4.2-5.4 Hemoglobin 13.8 g/dL 12.0-16.0 Hematocrit 39 % 35-47 Mean Corpuscular Volume 90 um3 79-97 Mean Corpuscular Hemoglob 31 pg 27-31 Mean Corpuscular HGB Cone 35 g/dL 32-36 Redcell Distribution WDTH 14 % 10.5-15 Platelet Count 229 CUMM 150-450 Mean Platelet Volume 8.8 um3 7.4-10.4 Gran % 56.6 % 38-83 Lymph % 33.8 % 25-47 Mononuclear % 6.7 % 1-9 Eosinophil % 2.1 % 0-6 Basophil % 0.8 % 0-2 Abs Lymphs 2.2 1.0-4.8 Abs Mononuclear 0.4 0-0.8 Absolute Neutrophil Count 3.7 1.5-7.7 Abs Eosinophils 0.1 0-0.6 Abs Basophils 0 0-0.2 Comp Metabolic Panel 12/20/2010 [facility] Sodium 138 mmol/L 135-145 [address] [place] [address] [phone] Potassium 3.9 mmol/L 3.5-5.0 Chloride 100 mmol/L Low 101-111 Co2 (Carbon Dioxide) 32.0 mmol/L 22-32 Anion Gap 6.0 mmol/L 2-11 53 Glucose 88 mg/dL 70-100 BUN 20 mg/dL 6-24 Creatinine 0.8 mg/dL 0.50-1.40 One Over Creatinine 1.25 BUN/Creatinine Ratio 25.0 High 8-20 Calcium 9.5 mg/dL 8.1-9.9 Total Protein 7.1 GM/DL 6.2-8.1 Albumin 4.0 GM/DL 3.2-5.2 Globulin 3.1 GM/DL 2-4 Albumin/Globulin Ratio 1.3 1-3 Bilirubin Total 0.8 mg/dL 0.4-1.5 54 Alkaline Phosphatase 52 U/L 30-110 Alt (SGPT) 25 U/L 14-54 Ast (Sgot) 30 U/L 12-42 eGFR Non- 68.8 > 60 eGFR 88.5 > 60 55 Laboratory test 12/20/2010 [facility] Troponin-I 0 NG/ML 0- 0.06 [address] [place] [address] [phone] Urinalysis 12/20/2010 [facility] Ua Color YELLOW Yellow [address] [place] [address] [phone] Appearance-Urine CLEAR Clear Specific [place]-Ur 1.017 1.010-1.030 Esterase-Urine NEGATIVE Negative Nitrite NEGATIVE Negative [id number] NEGATIVE Negative Protein-Urine NEGATIVE Negative PH-Urine 6.0 5-9 Blood-Urine NEGATIVE Negative Ketones-Urine NEGATIVE Negative Bilirubin-Ur NEGATIVE Negative Glucose-Urine NEGATIVE Negative Laboratory test 12/01/2010 [facility] Hemoglobin A1c 6.4 5-7 finding Lipid Profile 11/09/2010 [facility] Triglyceride 162 mg/dL 40 -200 (Trig/Chol/HDL) [address] [place] [address] [phone] Cholesterol 158 mg/dL Less Than 200 57 High Density Lipoprotein 51 mg/dL 40-60 58 Cholesterol/HDL Ratio 3.10 AVERAGE 1-4.44 Low Density Lipoprotein 75 mg/dL Less Than 100 59 Laboratory test 11/09/2010 [facility] Hemoglobin A1c 6.7 % High Less Than [address] [place] [address] [phone] Comp Metabolic 11/09/2010 [facility] Sodium 139 135-[address] mmol/[place] [address] [phone] Potassium 3.5 mmol/L 3.5-5.0 Chloride 102 mmol/L 101-111 Co2 (Carbon Dioxide) 30.0 mmol/L 22-32 Anion Gap 7.0 mmol/L 2-11 61 Glucose 126 mg/dL High 70-100 BUN 17 mg/dL 6-24 Creatinine 0.90 mg/dL 0.50-1.40 One Over Creatinine 1.10 BUN/Creatinine Ratio 18.9 8-20 Calcium 9.4 mg/dL 8.1-9.9 Total Protein 6.3 GM/DL 6.2-8.1 Albumin 4.1 GM/DL 3.2-5.2 Globulin 2.2 GM/DL 2-4 Albumin/Globulin Ratio 1.9 1-3 Bilirubin Total 0.8 mg/dL 0.4-1.5 62 Alkaline Phosphatase 51 U/L 30-110 Alt (SGPT) 21 U/L 14-54 Ast (Sgot) 25 U/L 12-42 eGFR Non- 60.1 > 60 eGFR 77.3 > [address] [facility] 05/09/2010 [facility] TSH 2.00 MIU/ML 0.34- 5.[address] [place] [address] [phone] Comp Metabolic 05/09/2010 [facility] Sodium 135 mmol/L 135- [address] [place] [address] [phone] Potassium 3.4 mmol/L Low 3.5-5.0 Chloride 98 mmol/L Low 101-111 Co2 (Carbon Dioxide) 31.0 mmol/L 22-32 Anion Gap 6.0 mmol/L 2-11 64 Glucose 130 mg/dL High 70-100 BUN 18 mg/dL 6-24 Creatinine 0.80 mg/dL 0.50-1.40 One Over Creatinine 1.20 BUN/Creatinine Ratio 22.5 High 8-20 Calcium 9.3 mg/dL 8.1-9.9 Total Protein 6.7 GM/DL 6.2-8.1 Albumin 4.1 GM/DL 3.2-5.2 Globulin 2.6 GM/DL 2-4 Albumin/Globulin Ratio 1.6 1-3 Bilirubin Total 0.8 mg/dL 0.4-1.5 65 Alkaline Phosphatase 50 U/L 30-110 eGFR Non- 73.4 > 60 eGFR 88.8 > 60 66 Lipid Profile 05/09/2010 [facility] Triglyceride 203 mg/dL High 40-200 (Trig/Chol/HDL) [address] [place] [address] [phone] Cholesterol 170 mg/dL Less Than 200 67 High Density Lipoprotein 55 mg/dL 40-60 68 Cholesterol/HDL Ratio 3.09 AVERAGE 1-4.44 Low Density Lipoprotein 74 mg/dL Less Than 100 69 CBC With 05/09/2010 [facility] White Blood 6.2 CUMM 4.8-10.8 Electronic Diff [address] [place] [address] [phone] Red Cell Count 4.66 CUMM 4.2-5.4 Hemoglobin 14.6 g/dL 12.0-16.0 Hematocrit 42 % 35-47 Mean Corpuscular Volume 90 um3 79-97 Mean Corpuscular Hemoglob 31 pg 27-31 Mean Corpuscular HGB Cone 35 g/dL 32-36 Redcell Distribution WDTH 13 % 10.5-15 Platelet Count 219 CUMM 150-450 Mean Platelet Volume 8.6 um3 7.4-10.4 Gran % 56.3 % 38-83 Lymph % 33.7 % 25-47 Mononuclear % 6.2 % 1-9 Eosinophil % 3.3 % 0-6 Basophil % 0.5 % 0-2 Abs Lymphs 2.1 1.0-4.8 Abs Mononuclear 0.4 0-0.8 Absolute Neutrophil Count 3.5 1.5-7.7 Abs Eosinophils 0.2 0-0.6 Abs Basophils 0 0-0.2 Laboratory test 05/09/2010 [facility] Hemoglobin A1c 6.4 % High Less Than 70 finding 101 [facility] [address] [place] [address] [phone] Ast (Sgot) 23 U/L 12-42 Alt (SGPT) 17 U/L 14-54 Thyroxine 8.5 g/dL 5-12 Laboratory test 11/21/2009 [facility] In House Hemoglobin A1c 6.7 5-[address] [facility] 04/28/2009 [facility] TSH 1.86 MIU/ML 0.34- 5.60 71 Panel [address] [place] [address] [phone] Comp Metabolic 04/28/2009 [facility] Sodium 139 mmol/L 135- 145 Panel [address] [place] [address] [phone] Potassium 3.4 mmol/L Low 3.5-5.0 Chloride 104 mmol/L 101-111 Co2 (Carbon Dioxide) 29.0 mmol/L 22-32 Anion Gap 6.0 mmol/L 2-11 72 Glucose 115 mg/dL High 70-100 73 BUN 20 mg/dL 6-24 Creatinine 0.90 mg/dL 0.50-1.40 One Over Creatinine 1.10 BUN/Creatinine Ratio 22.2 High 8-20 Calcium 9.5 mg/dL 8.1-9.9 74 Total Protein 6.1 GM/DL Low 6.2-8.1 Albumin 3.9 GM/DL 3.2-5.2 Globulin 2.2 GM/DL 2-4 Albumin/Globulin Ratio 1.8 1-3 Bilirubin Total 0.8 mg/dL 0.4-1.5 75 Alkaline Phosphatase 48 U/L 30-110 Alt (SGPT) 19 U/L 14-54 Ast (Sgot) 26 U/L 12-42 eGFR Non- 64.2 > 60 eGFR 77.7 > 60 76 Lipid Profile 04/28/2009 [facility] Triglyceride 150 mg/dL 40 -200 (Trig/Chol/HDL) [address] [place] [address] [phone] Cholesterol 156 mg/dL Less Than 200 77 High Density Lipoprotein 54 mg/dL 40-60 78 Cholesterol/HDL Ratio 2.89 AVERAGE 1-4.44 Low Density Lipoprotein 72 mg/dL Less Than 100 79 CBC With 04/28/2009 [facility] White Blood 5.0 CUMM 4.8-10.8 Electronic Diff [address] [place] [address] [phone] Red Cell Count 4.61 CUMM 4.2-5.4 Hemoglobin 14.1 g/dL 12.0-16.0 Hematocrit 41 % 35-47 Mean Corpuscular Volume 90 um3 79-97 Mean Corpuscular Hemoglob 31 pg 27-31 Mean Corpuscular HGB Cone 34 g/dL 32-36 Redcell Distribution WDTH 14 % 10.5-15 Platelet Count 190 CUMM 150-450 Mean Platelet Volume 9.0 um3 7.4-10.4 Gran % 56.5 % 38-83 Lymph % 32.9 % 25-47 Mononuclear % 7.4 % 1-9 Eosinophil % 2.6 % 0-6 Basophil % 0.6 % 0-2 Abs Lymphs 1.7 1.0-4.8 Abs Mononuclear 0.4 0-0.8 Absolute Neutrophil Count 2.8 1.5-7.7 Abs Eosinophils 0.1 0-0.6 Abs Basophils 0 0-0.2 Laboratory test 04/28/2009 [facility] Hemoglobin A1c 6.1 % High Less [address] [place] [address] [phone] Surgical 10/21/2008 [facility] Surgical --------- [address] Pathology ------- [place] [address] <SEE [phone] NOTE> CBC With 10/12/2008 [facility] White Blood 5.6 CUMM 4.8-10.[address] [place] [address] [phone] Red Cell Count 4.42 CUMM 4.2-5.4 Hemoglobin 13.6 g/dL 12.0-16.0 Hematocrit 40 % 35-47 Mean Corpuscular Volume 90 um3 79-97 Mean Corpuscular Hemoglob 31 pg 27-31 Mean Corpuscular HGB Cone 34 g/dL 32-36 Redcell Distribution WDTH 14 % 10.5-15 Platelet Count 203 CUMM 150-450 Mean Platelet Volume 9.0 um3 7.4-10.4 Gran % 53.9 % 38-83 Lymph % 38.3 % 25-47 Mononuclear % 5.0 % 1-9 Eosinophil % 2.2 % 0-6 Basophil % 0.6 % 0-2 Abs Lymphs 2.2 1.0-4.8 Abs Mononuclear 0.3 0-0.8 Absolute Neutrophil Count 3.0 1.5-7.7 Abs Eosinophils 0.1 0-0.6 Abs Basophils 0 0-0.2 Liver Function 10/12/2008 [facility] Total Protein 6.4 GM/DL 6.2-8.[address] [place] [address] [phone] Albumin 4.1 GM/DL 3.2-5.2 Globulin 2.3 GM/DL 2-4 Albumin/Globulin Ratio 1.8 1-3 Bilirubin Total 0.6 mg/dL 0.4-1.5 82 Bilirubin Direct 0.2 mg/dL 0.1-0.5 Indirect Bilirubin 0.4 mg/dL 0.1-0.75 Alkaline Phosphatase 52 U/L 30-110 Alt (SGPT) 18 U/L 14-54 Ast (Sgot) 23 U/L 12-42 Lipid Profile 05/13/2008 [facility] Triglyceride 164 mg/dL 40 -200 (Trig/Chol/HDL) [address] [place] [address] [phone] Cholesterol 164 mg/dL Less Than 200 83 High Density Lipoprotein 58 mg/dL 40-60 84 Cholesterol/HDL Ratio 2.83 AVERAGE 1-4.44 Low Density Lipoprotein 73 mg/dL Less Than 100 85 Laboratory test 04/27/2008 [facility] Hemoglobin A1c 6.3 % High <6.0 86, [address] [place] [address] [phone] Liver Function 04/27/2008 [facility] Bilirubin 0.1 0.1-0.[address] Direct mg/[place] [address] [phone] Indirect Bilirubin 0.7 mg/dL 0.1-0.75 Comp Metabolic Panel 04/27/2008 [facility] Sodium 137 mmol/L 135-[address] [place] [address] [phone] Potassium 3.5 mmol/L 3.5-5.0 Chloride 100 mmol/L Low 101-111 Co2 (Carbon Dioxide) 29.0 mmol/L 22-32 Anion Gap 8.0 mmol/L 2-11 88 Glucose 121 mg/dL High 70-100 89 BUN 16 mg/dL 6-24 Creatinine 1.00 mg/dL 0.50-1.40 One Over Creatinine 1.00 BUN/Creatinine Ratio 16.0 8-20 Calcium 9.5 mg/dL 8.1-9.9 90 Total Protein 6.6 GM/DL 6.2-8.1 Albumin 3.9 GM/DL 3.2-5.2 Globulin 2.7 GM/DL 2-4 Albumin/Globulin Ratio 1.4 1-3 Bilirubin Total 0.8 mg/dL 0.4-1.5 Alkaline Phosphatase 63 U/L 30-110 Alt (SGPT) 21 U/L 14-54 Ast (Sgot) 24 U/L 12-42 Laboratory test 01/15/2008 [facility] TSH 1.70 MIU/ML 0.34- 5.60 [address] [place] [address] [phone] Hemoglobin A1c 6.1 % High <6.0 92 Lipid Profile 01/15/2008 [facility] Triglyceride 184 mg/dL 40 -200 (Trig/Chol/HDL) [address] [place] [address] [phone] Cholesterol 221 mg/dL High Less Than 200 93 High Density Lipoprotein 51 mg/dL 40-60 94 Cholesterol/HDL Ratio 4.33 AVERAGE 1-4.44 Low Density Lipoprotein 133 mg/dL High Less Than 100 95 Comp Metabolic Panel 01/15/2008 [facility] Sodium 139 mmol/L 135-[address] [place], [place] [address] [phone] Potassium 3.5 mmol/L 3.5-5.0 Chloride 102 mmol/L 101-111 Co2 (Carbon Dioxide) 30.0 mmol/L 22-32 Anion Gap 7.0 mmol/L 2-11 96 Glucose 111 mg/dL High 70-100 97 BUN 19 mg/dL 6-24 Creatinine 0.9 mg/dL 0.5-1.4 One Over Creatinine 1.11 BUN/Creatinine Ratio 21.1 High 8-20 Calcium 9.3 mg/dL 8.1-9.9 98 Total Protein 6.8 GM/DL 6.2-8.1 Albumin 3.8 GM/DL 3.2-5.2 Globulin 3.0 GM/DL 2-4 Albumin/Globulin Ratio 1.3 1-3 Bilirubin Total 0.7 mg/dL 0.4-1.5 Alkaline Phosphatase 57 U/L 30-110 Alt (SGPT) 16 U/L 14-54 Ast (Sgot) 22 U/L 12-42 CBC With 01/15/2008 [facility] White Blood 4.6 CUMM Low 4.8- 10.8 Electronic Diff [address] [place] [address] [phone] Red Cell Count 4.53 CUMM 4.2-5.4 Hemoglobin 13.8 g/dL 12.0-16.0 Hematocrit 40 % 35-47 Mean Corpuscular Volume 87 um3 79-97 Mean Corpuscular Hemoglob 31 pg 27-31 Mean Corpuscular HGB Cone 35 g/dL 32-36 Redcell Distribution WDTH 13 % 10.5-15 Platelet Count 213 CUMM 150-450 Mean Platelet Volume 8.8 um3 7.4-10.4 Gran % 51.2 % 38-83 Lymph % 37.2 % 20-45 Mononuclear % 7.7 % 1-9 Eosinophil % 3.3 % 0-6 Basophil % 0.6 % 0-2 Abs Lymphs 1.7 1.0-4.8 Abs Mononuclear 0.4 0-0.8 Absolute Neutrophil Count 2.4 1.5-7.7 Abs Eosinophils 0.2 0-0.6 Abs Basophils 0 0-0.2 Laboratory test 11/12/2006 [facility] TSH 1.07 MIU/ML 0.34- 5.[address] [place] [address] [phone] Basic Metabolic 11/12/2006 [facility] One Over 1.[address] [place] [address] [phone] Anion Gap 10.0 mmol/L 2-11 99 BUN 16 mg/dL 6-24 Calcium 9.7 mg/dL 8.7-10.2 Chloride 96 mmol/L Low 101-111 Co2 (Carbon Dioxide) 31.0 mmol/L 22-32 Glucose 160 mg/dL High 70-105 Potassium 3.9 mmol/L 3.5-5.0 Sodium 137 mmol/L 135-145 BUN/Creatinine Ratio 16.0 8-20 Creatinine 1.0 mg/dL 0.5-1.4 Laboratory test 11/12/2006 [facility] Free Thyroxine 0.85 NG/ML 0.61-1.24 [address] [place] [address] [phone] 1 Unable to calculate due to low microalbumin 2 Because ethnic data is not always readily available, this report includes an eGFR for both -Americans and non- Americans. The National Kidney Disease Education Program (NKDEP) does not endorse the use of the MDRD equation for patients that are not between the ages of 18 and 70, are , have extremes of body size, muscle mass, or nutritional status, or are non- or non-. According to the National Kidney Foundation, irrespective of diagnosis, the stage of the disease is based on the level of kidney function: Stage Description GFR(mL/min/1.73 m(2)) 1 Kidney damage with normal or decreased GFR 90 2 Kidney damage with mild decrease in GFR 60-89 3 Moderate decrease in GFR 30-59 4 Severe decrease in GFR 15-29 5 Kidney failure <15 (or dialysis) 3 Desirable: <150 Borderline High: 150-199 High: 200-499 Very High: >500 4 Desirable: <200 Borderline High: 200-239 High: >239 5 Low: <40 Desirable: 40-60 High: >60 6 Desirable: <100 Near Optimal: 100-129 Borderline High: 130-159 High: 160-189 Very High: >189 7 Therapeutic target for the treatment of diabetes mellitus patients is <7% HBA1C, and in selective patients <6.0%. Please refer to [place] diabetic care guidelines for further information. 8 Because ethnic data is not always readily available, this report includes an eGFR for both -Americans and non- Americans. The National Kidney Disease Education Program (NKDEP) does not endorse the use of the MDRD equation for patients that are not between the ages of 18 and 70, are , have extremes of body size, muscle mass, or nutritional status, or are non- or non-. According to the National Kidney Foundation, irrespective of diagnosis, the stage of the disease is based on the level of kidney function: Stage Description GFR(mL/min/1.73 m(2)) 1 Kidney damage with normal or decreased GFR 90 2 Kidney damage with mild decrease in GFR 60-89 3 Moderate decrease in GFR 30-59 4 Severe decrease in GFR 15-29 5 Kidney failure <15 (or dialysis) 9 FASTING 10 Unable to calculate due to low microalbumin 11 Because ethnic data is not always readily available, this report includes an eGFR for both -Americans and non- Americans. The National Kidney Disease Education Program (NKDEP) does not endorse the use of the MDRD equation for patients that are not between the ages of 18 and 70, are , have extremes of body size, muscle mass, or nutritional status, or are non- or non-. According to the National Kidney Foundation, irrespective of diagnosis, the stage of the disease is based on the level of kidney function: Stage Description GFR(mL/min/1.73 m(2)) 1 Kidney damage with normal or decreased GFR 90 2 Kidney damage with mild decrease in GFR 60-89 3 Moderate decrease in GFR 30-59 4 Severe decrease in GFR 15-29 5 Kidney failure <15 (or dialysis) 12 Desirable <150 Borderline high 150-199 High 200-499 Very High >500 13 Desirable <200 Borderline high 200-239 High >239 14 Low <40 Desirable: 40-60 High: >60 15 Desirable: <100 mg/dL Near Optimal: 100-129 mg/dL Borderline High: 130-159 mg/dL High: 160-189 mg/dL Very High: >189 mg/dL 16 Unable to calculate due to low microalbumin 17 Therapeutic target for the treatment of diabetes Mellitus patients is <7% HBA1C, and in selective patients <6.0%.Please refer to [place] Diabetic care guidelines for further information. 18 Because ethnic data is not always readily available, this report includes an eGFR for both -Americans and non- Americans. The National Kidney Disease Education Program (NKDEP) does not endorse the use of the MDRD equation for patients that are not between the ages of 18 and 70, are , have extremes of body size, muscle mass, or nutritional status, or are non- or non-. According to the National Kidney Foundation, irrespective of diagnosis, the stage of the disease is based on the level of kidney function: Stage Description GFR(mL/min/1.73 m(2)) 1 Kidney damage with normal or decreased GFR 90 2 Kidney damage with mild decrease in GFR 60-89 3 Moderate decrease in GFR 30-59 4 Severe decrease in GFR 15-29 5 Kidney failure <15 (or dialysis) 19 Therapeutic target for the treatment of diabetes Mellitus patients is <7% HBA1C, and in selective patients <6.0%.Please refer to [place] Diabetic care guidelines for further information. 20 [id number] FASTING 21 [id number] FASTING 22 Because ethnic data is not always readily available, this report includes an eGFR for both -Americans and non- Americans. The National Kidney Disease Education Program (NKDEP) does not endorse the use of the MDRD equation for patients that are not between the ages of 18 and 70, are , have extremes of body size, muscle mass, or nutritional status, or are non- or non-. According to the National Kidney Foundation, irrespective of diagnosis, the stage of the disease is based on the level of kidney function: Stage Description GFR(mL/min/1.73 m(2)) 1 Kidney damage with normal or decreased GFR 90 2 Kidney damage with mild decrease in GFR 60-89 3 Moderate decrease in GFR 30-59 4 Severe decrease in GFR 15-29 5 Kidney failure <15 (or dialysis) 23 Unable to calculate due to low microalbumin 24 Therapeutic target for the treatment of diabetes Mellitus patients is <7% HBA1C, and in selective patients <6.0%.Please refer to [place] [employer] Diabetic care guidelines for further information. 25 Desirable <150 Borderline high 150-199 High 200-499 Very High >500 26 Desirable <200 Borderline high 200-239 High >239 27 Low <40 Desirable: 40-60 High: >60 28 Desirable: <100 mg/dL Near Optimal: 100-129 mg/dL Borderline High: 130-159 mg/dL High: 160-189 mg/dL Very High: >189 mg/dL 29 Acute inflammation: >10.00 30 Therapeutic target for the treatment of diabetes Mellitus patients is <7% HBA1C, and in selective patients <6.0%.Please refer to [place] Diabetic care guidelines for further information. 31 Desirable <150 Borderline high 150-199 High 200-499 Very High >500 32 Desirable <200 Borderline high 200-239 High >239 33 Low <40 Desirable: 40-60 High: >60 34 Desirable <100 Near Optimal 100-129 Borderline high 130-159 High 160-189 Very High >189 35 Potassium reference range changed effective 02/21/14 36 Because ethnic data is not always readily available, this report includes an eGFR for both -Americans and non- Americans. The National Kidney Disease Education Program (NKDEP) does not endorse the use of the MDRD equation for patients that are not between the ages of 18 and 70, are , have extremes of body size, muscle mass, or nutritional status, or are non- or non-. According to the National Kidney Foundation, irrespective of diagnosis, the stage of the disease is based on the level of kidney function: Stage Description GFR(mL/min/1.73 m(2)) 1 Kidney damage with normal or decreased GFR 90 2 Kidney damage with mild decrease in GFR 60-89 3 Moderate decrease in GFR 30-59 4 Severe decrease in GFR 15-29 5 Kidney failure <15 (or dialysis) 37 Therapeutic target for the treatment of diabetes Mellitus patients is <7% HBA1C, and in selective patients <6.0%.Please refer to [place] Diabetic care guidelines for further information. 38 Therapeutic target for the treatment of diabetes Mellitus patients is <7% HBA1C, and in selective patients <6.0%.Please refer to [place] Diabetic care guidelines for further information. 39 Microalbuminuria in a random sample is defined as: Microalbumin/Creatinine ratio of 30-299 ug/mg. 40 Because ethnic data is not always readily available, this report includes an eGFR for both -Americans and non- Americans. The National Kidney Disease Education Program (NKDEP) does not endorse the use of the MDRD equation for patients that are not between the ages of 18 and 70, are , have extremes of body size, muscle mass, or nutritional status, or are non- or non-. According to the National Kidney Foundation, irrespective of diagnosis, the stage of the disease is based on the level of kidney function: Stage Description GFR(mL/min/1.73 m(2)) 1 Kidney damage with normal or decreased GFR 90 2 Kidney damage with mild decrease in GFR 60-89 3 Moderate decrease in GFR 30-59 4 Severe decrease in GFR 15-29 5 Kidney failure <15 (or dialysis) 41 Therapeutic target for the treatment of diabetes Mellitus patients is <7% HBA1C, and in selective patients <6.0%.Please refer to [place] Diabetic care guidelines for further information. 42 HDL Interpretation: Undesirable: High Risk: Less than 40 mg/dL Desirable: Low Risk: Greater than 60 mg/dL 43 LDL Interpretation: Low Risk Optimal Level: LDL Less than 100 mg/dL Near or Above Optimal: LDL 100-129 mg/dL Borderline High Risk: LDL 130-159 mg/dL High Risk: LDL 160-189 mg/dL Very High Risk: LDL Greater than 189 mg/dL 44 FASTING 45 Microalbuminuria in a random sample is defined as: Microalbumin/Creatinine ratio of 30-299 ug/mg. 46 CHOLESTEROL INTERPRETATION: Desirable: Less than 200 MG/DL Borderline-High Risk: 200-239 MG/DL High-Risk: 240 MG/DL and over 47 HDL INTERPRETATION: Undesirable: High Risk: Less than 40 MG/DL Desirable: Low Risk: Greater than 60 MG/DL 48 LDL INTERPRETATION: Low Risk Optimal Level: LDL Less than 100 MG/DL Near or Above Optimal: LDL 100-129 MG/DL Borderline High Risk: LDL 130-159 MG/DL High Risk: LDL 160-189 MG/DL Very High Risk: LDL Greater than 189 MG/DL 49 Anion gap measurement may be of limited value in the presence of any alkalosis, especially in a combined acid base disorder. . 50 A metabolite of Naproxen, O-desmethylnaproxen, has been shown to interfere with the Jendrassik-Larry method for measuring total bilirubin. Samples from patients who have taken Naproxen have shown spurious elevation in total bilirubin levels. 51 Because ethnic data is not always readily available, this report includes an eGFR for both -Americans and non- Americans. The National Kidney Disease Education Program (NKDEP) does not endorse the use of the MDRD equation for patients that are not between the ages of 18 and 70, are , have extremes of body size, muscle mass, or nutritional status, or are non- or non-. According to the National Kidney Foundation, irrespective of diagnosis, the stage of the disease is based on the level of kidney function: Stage Description GFR(mL/min/1.73 m(2)) 1 Kidney damage with normal or decreased GFR 90 2 Kidney damage with mild decrease in GFR 60-89 3 Moderate decrease in GFR 30-59 4 Severe decrease in GFR 15-29 5 Kidney failure <15 (or dialysis) 52 THERAPEUTIC TARGET FOR THE TREATMENT OF DIABETES MELLITUS PATIENTS IS <7% HBA1C, AND IN SELECTIVE PATIENTS <6.0%. PLEASE REFER TO [place] [employer]ATION DIABETIC CARE GUIDELINES FOR FURTHER INFORMATION. 53 Anion gap measurement may be of limited value in the presence of any alkalosis, especially in a combined acid base disorder. . 54 A metabolite of Naproxen, O-desmethylnaproxen, has been shown to interfere with the [place] method for measuring total bilirubin. Samples from patients who have taken Naproxen have shown spurious elevation in total bilirubin levels. 55 Because ethnic data is not always readily available, this report includes an eGFR for both -Americans and non- Americans. The National Kidney Disease Education Program (NKDEP) does not endorse the use of the MDRD equation for patients that are not between the ages of 18 and 70, are , have extremes of body size, muscle mass, or nutritional status, or are non- or non-. According to the National Kidney Foundation, irrespective of diagnosis, the stage of the disease is based on the level of kidney function: Stage Description GFR(mL/min/1.73 m(2)) 1 Kidney damage with normal or decreased GFR 90 2 Kidney damage with mild decrease in GFR 60-89 3 Moderate decrease in GFR 30-59 4 Severe decrease in GFR 15-29 5 Kidney failure <15 (or dialysis) 56 New Reference Range and Interpretation effective 01/23/2002 TnI (ng/ml) INTERPRETATION Less Than 0.06 ng/mL NOT SUPPORTIVE OF DIAGNOSIS OF [place] 0.06 - 0.50 ng/ml INDETERMINATE: SUGGEST SERIAL STUDIES IF CLINICALLY INDICATED. Greater than 0.5 ng/mL CONSISTENT WITH DIAGNOSIS OF [place] . 57 CHOLESTEROL INTERPRETATION: Desirable: Less than 200 MG/DL Borderline-High Risk: 200-239 MG/DL High-Risk: 240 MG/DL and over 58 HDL INTERPRETATION: Undesirable: High Risk: Less than 40 MG/DL Desirable: Low Risk: Greater than 60 MG/DL 59 LDL INTERPRETATION: Low Risk Optimal Level: LDL Less than 100 MG/DL Near or Above Optimal: LDL 100-129 MG/DL Borderline High Risk: LDL 130-159 MG/DL High Risk: LDL 160-189 MG/DL Very High Risk: LDL Greater than 189 MG/DL 60 THERAPEUTIC TARGET FOR THE TREATMENT OF DIABETES MELLITUS PATIENTS IS <7% HBA1C, AND IN SELECTIVE PATIENTS <6.0%. PLEASE REFER TO [place] [employer] DIABETIC CARE GUIDELINES FOR FURTHER INFORMATION. 61 Anion gap measurement may be of limited value in the presence of any alkalosis, especially in a combined acid base disorder. . 62 A metabolite of Naproxen, O-desmethylnaproxen, has been shown to interfere with the [place] method for measuring total bilirubin. Samples from patients who have taken Naproxen have shown spurious elevation in total bilirubin levels. 63 Because ethnic data is not always readily available, this report includes an eGFR for both -Americans and non- Americans. The National Kidney Disease Education Program (NKDEP) does not endorse the use of the MDRD equation for patients that are not between the ages of 18 and 70, are , have extremes of body size, muscle mass, or nutritional status, or are non- or non-. According to the National Kidney Foundation, irrespective of diagnosis, the stage of the disease is based on the level of kidney function: Stage Description GFR(mL/min/1.73 m(2)) 1 Kidney damage with normal or decreased GFR 90 2 Kidney damage with mild decrease in GFR 60-89 3 Moderate decrease in GFR 30-59 4 Severe decrease in GFR 15-29 5 Kidney failure <15 (or dialysis) 64 Anion gap measurement may be of limited value in the presence of any alkalosis, especially in a combined acid base disorder. . 65 A metabolite of Naproxen, O-desmethylnaproxen, has been shown to interfere with the [place] method for measuring total bilirubin. Samples from patients who have taken Naproxen have shown spurious elevation in total bilirubin levels. 66 Because ethnic data is not always readily available, this report includes an eGFR for both -Americans and non- Americans. The National Kidney Disease Education Program (NKDEP) does not endorse the use of the MDRD equation for patients that are not between the ages of 18 and 70, are , have extremes of body size, muscle mass, or nutritional status, or are non- or non-. According to the National Kidney Foundation, irrespective of diagnosis, the stage of the disease is based on the level of kidney function: Stage Description GFR(mL/min/1.73 m(2)) 1 Kidney damage with normal or decreased GFR 90 2 Kidney damage with mild decrease in GFR 60-89 3 Moderate decrease in GFR 30-59 4 Severe decrease in GFR 15-29 5 Kidney failure <15 (or dialysis) 67 CHOLESTEROL INTERPRETATION: Desirable: Less than 200 MG/DL Borderline-High Risk: 200-239 MG/DL High-Risk: 240 MG/DL and over 68 HDL INTERPRETATION: Undesirable: High Risk: Less than 40 MG/DL Desirable: Low Risk: Greater than 60 MG/DL 69 LDL INTERPRETATION: Low Risk Optimal Level: LDL Less than 100 MG/DL Near or Above Optimal: LDL 100-129 MG/DL Borderline High Risk: LDL 130-159 MG/DL High Risk: LDL 160-189 MG/DL Very High Risk: LDL Greater than 189 MG/DL 70 THERAPEUTIC TARGET FOR THE TREATMENT OF DIABETES MELLITUS PATIENTS IS <7% HBA1C, AND IN SELECTIVE PATIENTS <6.0%. PLEASE REFER TO [employer] [employer] DIABETIC CARE GUIDELINES FOR FURTHER INFORMATION. 71 PATIENT MAY HAVE RESULTS PER DOCTOR'S AUTHORIZATION. Questions regarding this report should be directed to your doctor. 72 Anion gap measurement may be of limited value in the presence of any alkalosis, especially in a combined acid base disorder. . 73 Note change in reference range as of 12/11/07. The change was based on recommendations from the [place] [employer]. 74 Please note change in reference range effective 07 . 75 A metabolite of Naproxen, O-desmethylnaproxen, has been shown to interfere with the [place] method for measuring total bilirubin. Samples from patients who have taken Naproxen have shown spurious elevation in total bilirubin levels. 76 Because ethnic data is not always readily available, this report includes an eGFR for both -Americans and non- Americans. The National Kidney Disease Education Program (NKDEP) does not endorse the use of the MDRD equation for patients that are not between the ages of 18 and 70, are , have extremes of body size, muscle mass, or nutritional status, or are non- or non-. According to the National Kidney Foundation, irrespective of diagnosis, the stage of the disease is based on the level of kidney function: Stage Description GFR(mL/min/1.73 m(2)) 1 Kidney damage with normal or decreased GFR 90 2 Kidney damage with mild decrease in GFR 60-89 3 Moderate decrease in GFR 30-59 4 Severe decrease in GFR 15-29 5 Kidney failure <15 (or dialysis) 77 CHOLESTEROL INTERPRETATION: Desirable: Less than 200 MG/DL Borderline-High Risk: 200-239 MG/DL High-Risk: 240 MG/DL and over 78 HDL INTERPRETATION: Undesirable: High Risk: Less than 40 MG/DL Desirable: Low Risk: Greater than 60 MG/DL 79 LDL INTERPRETATION: Low Risk Optimal Level: LDL Less than 100 MG/DL Near or Above Optimal: LDL 100-129 MG/DL Borderline High Risk: LDL 130-159 MG/DL High Risk: LDL 160-189 MG/DL Very High Risk: LDL Greater than 189 MG/DL 80 THERAPEUTIC TARGET FOR THE TREATMENT OF DIABETES MELLITUS PATIENTS IS <7% HBA1C, AND IN SELECTIVE PATIENTS <6.0%. PLEASE REFER TO [place] [employer]ATION DIABETIC CARE GUIDELINES FOR FURTHER INFORMATION. 81 ---- RUN DATE: 10/25/08 [facility] NMI LIVE PAGE 1 RUN TIME: 1500 Specimen Inquiry RUN USER: INTERFACE -- Name: FAIZAN BAI Status: [facility] Re10/21/08 Age/Sex: 78/F Unit#: [id number] Location: [facility] : 29 -- Specimen: [id number] SOUT Spec Date: 10/21/[address]: Tyler amado MD Spec Type: SURGICAL P Received: 10/22/0813 Copies to: Tanner Zhao III, MD SPECIMEN WIDE EXCISION MELANOMA IN SITU ZYGOMATIC CHEEK HISTORY PRE-OP DIAGNOSIS: Melanoma in situ right zygomatic cheek, sutures nikita tw elve o'clock position right side. GROSS DESCRIPTION The specimen is received in formalin labelled Faizan Bai, Wide Excision Melanoma In Situ, Suture Betancourt Twelve O'clock Position Right Side, and consists of a skin ellipse measuring 3.2 x 1.6 x 0.7 cm. with a central area of irregular pigmentation ranging up to 0.8 cm. There is an orienting suture designated twelve o'clock. The nine o'clock aspect is inked black and the three o'clock aspect is inked blue. The specimen is serially sectioned along its short axis and submitted entirely from twelve to six o'clock in A and B, respectively. DIAGNOSIS Skin, zygomatic cheek, right, excision: A. Skin with recent scar and focal residual atypical melanocytic proliferation. B. All margins of excision including the tip, the lateral, and the deep margins are free of melanocytic proliferation. C. Marked solar elastosis. COMMENT This excision shows a recent scar and focal residual atypical melanocytic proliferation, located adjacent to the previous scar and away from the margins of excision. No residual lentigo maligna is seen. Signed Electronically by: KERRY MCKEON 10/25/08 1500 -- DEPARTMENT OF PATHOLOGY, [address] [place] [address] [facility] Permit #[id number] Hernesto Marr M.D. Director Kerry Mckeon M.D. Client Relations Specialist Dir huma -- 82 A metabolite of Naproxen, O-desmethylnaproxen, has been shown to interfere with the [place] method for measuring total bilirubin. Samples from patients who have taken Naproxen have shown spurious elevation in total bilirubin levels. 83 CHOLESTEROL INTERPRETATION: Desirable: Less than 200 MG/DL Borderline-High Risk: 200-239 MG/DL High-Risk: 240 MG/DL and over 84 HDL INTERPRETATION: Undesirable: High Risk: Less than 40 MG/DL Desirable: Low Risk: Greater than 60 MG/DL 85 LDL INTERPRETATION: Low Risk Optimal Level: LDL Less than 100 MG/DL Near or Above Optimal: LDL 100-129 MG/DL Borderline High Risk: LDL 130-159 MG/DL High Risk: LDL 160-189 MG/DL Very High Risk: LDL Greater than 189 MG/DL 86 PATIENT MAY HAVE RESULTS PER DOCTOR'S AUTHORIZATION. Questions regarding this report should be directed to your doctor. FASTING 87 THERAPEUTIC TARGET FOR THE TREATMENT OF DIABETES MELLITUS PATIENTS IS <7% HBA1C, AND IN SELECTIVE PATIENTS <6.0%. PLEASE REFER TO [place] [employer]ATION DIABETIC CARE GUIDELINES FOR FURTHER INFORMATION. 88 Anion gap measurement may be of limited value in the presence of any alkalosis, especially in a combined acid base disorder. . 89 Note change in reference range as of 12/11/07. The change was based on recommendations from the [place] [employer]. 90 Please note change in reference range effective 07 . 91 PATIENT MAY HAVE RESULTS PER DOCTOR'S AUTHORIZATION. Questions regarding this report should be directed to your doctor. 92 THERAPEUTIC TARGET FOR THE TREATMENT OF DIABETES MELLITUS PATIENTS IS <7% HBA1C, AND IN SELECTIVE PATIENTS <6.0%. PLEASE REFER TO [employer]ATION DIABETIC CARE GUIDELINES FOR FURTHER INFORMATION. 93 CHOLESTEROL INTERPRETATION: Desirable: Less than 200 MG/DL Borderline-High Risk: 200-239 MG/DL High-Risk: 240 MG/DL and over 94 HDL INTERPRETATION: Undesirable: High Risk: Less than 40 MG/DL Desirable: Low Risk: Greater than 60 MG/DL 95 LDL INTERPRETATION: Low Risk Optimal Level: LDL Less than 100 MG/DL Near or Above Optimal: LDL 100-129 MG/DL Borderline High Risk: LDL 130-159 MG/DL High Risk: LDL 160-189 MG/DL Very High Risk: LDL Greater than 189 MG/DL 96 Anion gap measurement may be of limited value in the presence of any alkalosis, especially in a combined acid base disorder. . 97 Note change in reference range as of 12/11/07. The change was based on recommendations from the [place] [employer]. 98 Please note change in reference range effective 07 . 99 Anion gap measurement may be of limited value in the presence of any alkalosis, especially in a combined acid base disorder. . 100 PLEASE NOTE NEW REFERENCE RANGES. Procedures Date Code Description Status 06/04/2018 [id number] Mammogram Completed 02/10/2018 16949 Dest Lesion Each Addl Lesion 2 Through 14 Each Completed 02/10/2018 28770 Destruction ALL Benign Or Premalignant Lesion (Other Completed Than [place] 12/12/2017 [id number] Diabetic Retinal Eye Exam Completed 06/24/2017 45352 Destruction ALL Benign Or Premalignant Lesion (Other Completed Than [place] 05/14/2017 [id number] Mammogram Completed 11/08/2016 71963 Repair Immediate Wound < 2.6CM Completed Face/Ear/Eyelid/Nose/Lip/Muc Mem 11/08/2016 80853 Excise Malig Lesion 1.1-2CM Face/Ear/Eyelid/Nose/Lip Completed 10/26/2016 57668 Destruction ALL Benign Or Premalignant Lesion (Other Completed Than [place] 10/26/2016 40155 Biopsy Skin Lesion Single Completed 05/07/2016 [id number] Mammogram Completed 05/05/2015 [id number] Mammogram Completed 10/22/2014 [id number] Diabetic Retinal Eye Exam Completed 05/04/2014 [id number] Mammogram Completed 10/26/2013 [id number] Mammogram Completed 04/21/2013 [id number] Mammogram Completed 10/20/2012 [id number] Mammogram Completed 09/19/2012 [id number] Diabetic Retinal Eye Exam Completed 09/18/2012 [id number] Diabetic Retinal Eye Exam Completed 04/18/2012 [id number] Mammogram Completed 04/12/2011 [id number] Mammogram Completed 04/10/2010 [id number] Mammogram Completed 03/13/2010 81005 Rad Exam; Both Knees, Standing Ap Completed 04/07/2009 [id number] Mammogram Completed 01/23/2005 [id number] Colonoscopy Completed Encounters Type Date Location Provider Dx Diagnosis Office Visit 02/10/2018 9:30a [facility] MD L71.8 Other rosacea L82.1 Other seborrheic keratosis Z08 Encntr for follow-up exam after trtmt for malignant neoplasm Z85.828 Personal history of other malignant neoplasm of skin L57.0 Actinic keratosis Office Visit 11/26/2017 3:20p [facility] Wang B02.9 Zoster without Magnolia Zhao M.D. complications [place] R26.89 Other abnormalities of gait and mobility Office Visit 06/24/2017 11:00a [facility], L82.1 Other seborrheic keratosis D22.5 Melanocytic nevi of trunk R60.0 Localized edema L57.0 Actinic keratosis Z85.828 Personal history of other malignant neoplasm of skin Office Visit 04/11/2017 10:00a [facility] Wang E11.9 Type 2 diabetes Magnolia Zhao M.D. mellitus without [place] complications I10 Essential (primary) hypertension E78.00 Pure hypercholesterolemia, unspecified Z12.31 Encntr screen mammogram for malignant neoplasm of breast Office Visit 11/08/2016 1:00p [facility], L21.8 Other seborrheic MD dermatitis C44.319 Basal cell carcinoma of skin of other parts of face Office Visit 10/26/2016 9:00a [facility], L82.1 Other seborrheic MD keratosis D48.5 Neoplasm of uncertain behavior of skin L57.0 Actinic keratosis Office Visit 08/01/2016 2:20p [employer] Project [employer] [place] Wang J20.9 Acute bronchitis, Magnolia Zhao M.D. unspecified [place] Office Visit 04/10/2016 2:00p [facility] Wang E11.9 Type 2 diabetes Magnolia Zhao M.D. mellitus without [place] complications E78.00 Pure hypercholesterolemia, unspecified E03.9 Hypothyroidism, unspecified Z12.39 Encounter for oth screening for malignant neoplasm of breast I10 Essential (primary) hypertension Office Visit 01/05/2016 10:20a [facility] Wang R60.0 Localized edema [place] E11.9 Type 2 diabetes mellitus without complications E78.0 Pure hypercholesterolemia Office Visit 11/03/2015 4:00p [facility] Wang M54.5 Low back pain Magnolia Zhao M.D. [place] Office Visit 09/15/2015 11:40a [facility] Internal Zev Wang J20.9 Acute bronchitis, Magnolia Zhao M.D. unspecified [place] E11.9 Type 2 diabetes mellitus without complications I10 Essential (primary) hypertension E03.9 Hypothyroidism, unspecified Office Visit 10/25/2014 11:40a [facility] Zev Wang 729.5 Pain In Limb Magnolia Zhao M.D. [place] Office Visit 04/02/2014 9:20a [facility] Zev Wang 250.00 Diabetes Mellitus Magnolia Zhao M.D. W/O Compl Type II [place] Or Unspec Controlled 401.1 Hypertension Benign 272.0 Hypercholesterolemia Pure 244.9 Hypothyroidism Other Unspec Office Visit 10/01/2013 10:00a [facility] Zev Wang V72.81 Examination Magnolia Zhao M.D. Preoperative [place] [facility] 366.10 Cataract Senile Unspec 250.00 Diabetes Mellitus W/O Compl Type II Or Unspec Controlled 401.1 Hypertension Benign 272.0 Hypercholesterolemia Pure 244.9 Hypothyroidism Other Unspec Office Visit 12/25/2012 1:20p [facility] Zev Wang 250.00 Diabetes Mellitus Magnolia Zhao M.D. W/O Compl Type II [place] Or Unspec Controlled 250.00 Diabetes Mellitus W/O Compl Type II Or Unspec Controlled 401.1 Hypertension Benign 401.1 Hypertension Benign 272.0 Hypercholesterolemia Pure 244.9 Hypothyroidism Other Unspec 244.9 Hypothyroidism Other Unspec Office Visit 12/03/2011 11:00a [facility] Zev Wang 250.00 Diabetes Mellitus Magnolia Zhao M.D. W/O Compl Type II [place] Or Unspec Controlled 401.1 Hypertension Benign 272.0 Hypercholesterolemia Pure 244.9 Hypothyroidism Other Unspec Office Visit 06/04/2011 2:00p [facility] Zev Wang 250.00 Diabetes Mellitus Magnolia Zhao M.D. W/O Compl Type II [place] Or Unspec Controlled 401.1 Hypertension Benign 272.0 Hypercholesterolemia Pure 244.9 Hypothyroidism Other Unspec Office Visit 12/22/2010 11:20a DO Not Use Software Project Manager Zev Wang 386.11 Vertigo Benign AT Cecil Zhao M.D. Paroxysmal Position Office Visit 12/01/2010 10:20a DO Not Use Bita Wang 250.00 Diabetes Mellitus AT Cecil Zhao M.D. W/O Compl Type II Or Unspec Controlled 401.1 Hypertension Benign 244.9 Hypothyroidism Other Unspec 272.0 Hypercholesterolemia Pure Office Visit 05/19/2010 11:20a DO Not Use Software Project Manager Zev E. 250.00 Diabetes Mellitus AT Cecil Zhao M.D. W/O Compl Type II Or Unspec Controlled 401.1 Hypertension Benign 244.9 Hypothyroidism Other Unspec 272.0 Hypercholesterolemia Pure Office Visit 03/13/2010 10:00a Orthopedic Gabino Norris, 715.96 [facility] Unspec Genl[place] Or C.M.A. Localized Lower Leg Office Visit 11/18/2009 10:40a DO Not Use Software Project Manager Zev E. 401.1 Hypertension Benign AT Cecil Zhao M.D. 272.0 Hypercholesterolemia Pure 250.00 Diabetes Mellitus W/O Compl Type II Or Unspec Controlled 244.9 Hypothyroidism Other Unspec Office Visit 05/10/2009 2:40p DO Not Use Software Project Manager Zev E. V72.31 Routine [employer] Nurse AT Cecil Zhao M.D. Examination 401.1 Hypertension Benign Office Visit 05/05/2009 9:30a DO Not Use Software Project Manager Zev E. 250.00 Diabetes Mellitus AT Cecil Zhao M.D. W/O Compl Type II Or Unspec Controlled 401.1 Hypertension Benign 272.0 Hypercholesterolemia Pure 244.9 Hypothyroidism Other Unspec 724.2 Lumbago V04.81 Need For Prophylactic Vaccination & Inoculation/Influenza Office Visit 11/04/2008 [facility] Zev E. 272.0 Hypercholesterolemia Pure 11:00a Assoc AT Patrick Zhao [facility] 250.00 Diabetes Mellitus W/O Compl Type II Or Unspec Controlled 401.1 Hypertension Benign Office Visit 08/02/2008 10:45a [place] [facility] Zev E. 782.1 Rash & Other Assoc AT Patrick Zhao [facility] Eruption Office Visit 07/12/2008 10:45a [place] [facility] Zev E. 782.1 Rash & Other [facility]oc [facility] Eruption Office Visit 05/06/2008 10:15a [place] [facility] Zev E. 250.00 Diabetes Mellitus Assoc AT Patrick Zhao W/O Compl Type II [place] Or Unspec Controlled 272.0 Hypercholesterolemia Pure 401.1 Hypertension Benign Office Visit 03/04/2008 [place] Zev E. 272.0 Hypercholesterolemia Pure 11:00a Assoc AT Patrick Zhao [facility] 401.1 Hypertension Benign Office Visit 09/02/2007 10:30a [place] [facility] Zev E. 250.00 Diabetes Mellitus Assoc AT Patrick Zhao W/O Compl Type II [facility] Or Unspec Controlled 401.1 Hypertension Benign Office Visit 03/04/2007 10:15a [place] [facility] Zev Wang 401.1 Hypertension Benign Assoc AT Patrick Zhao [facility] Office Visit 02/05/2007 10:00a [place] [facility] Zev E. 250.00 Diabetes Mellitus Assoc AT Patrick Zhao W/O Compl Type II [facility] Or Unspec Controlled 401.1 Hypertension Benign V04.81 Need For Prophylactic Vaccination & Inoculation/Influenza Office Visit 01/09/2007 9:15a [place] [facility] Zev Wang 708.9 Urticaria Unspec AT [facility] Patrick Zhao [place] Office Visit 01/06/2007 11:00a [facility] Assoc Zev Wang 708.9 Urticaria Unspec AT [facility] Patrick Zhao [place] 790.6 Abnormal Blood Chemistry Other 401.1 Hypertension Benign Office Visit 11/12/2006 9:30a [place] [facility] Zev Wang 729.82 Cramp Of Limb AT [facility] Patrick Zhao 790.6 Abnormal Blood Chemistry Other 401.1 Hypertension Benign Plan of Treatment Future Appointment(s):12/09/2018 10:20 am - Zev Zhao M.D. at [facility] Internal Medicine [facility]06/16/2018 - Zev Zhao M.D.I10 Essential ( primary) hypertensionFollow up:wellness exam in November or prnE11.9 Type 2 diabetes mellitus without complicationsNew Labs:Hemoglobin A1c (Glyco HGB), Ordered: 06/16/18Comments:A1c at goal at 6.8. Continue diet odoygbnD98.00 Pure hypercholesterolemia, unspecifiedComments:On RxE03.9 Hypothyroidism, unspecifiedComments:On Rx
[2018-06-24 10:21] VITALS: BP 155/81
--- NOTE | 2018-06-24 10:26 | UC ---
Back Pain HPI - HPI Summary HPI Summary: 87 yo female presents with left hip/buttock pain for the last 4 days. She tells me that she fell about 2 weeks ago getting into her car and landed on her buttocks - didn't have any pain then and was checked by her PCP a few days later and told she was fine. 4 days ago she was at her Urologist's office and says that she had to get up and down off the exam table multiple times. One time she stepped down off the table and felt a sharp pain in her left posterior hip/buttocks. Has been painful since. Pain is worse with standing from a seated position. Feels better with non-weight bearing and leaning forward. She has taken motrin with mild relief. She is ambulatory at baseline with a rolling walker and continues to use this today. Denies numbness or tingling. No saddle anesthesia or loss of bowel/bladder control. - History of Current Complaint Chief Complaint: UCBackPain Stated Complaint: BACK PAIN Time Seen by Provider: 06/24/18 10:26 Hx Obtained From: Patient Hx Last Menstrual Period: na Onset/Duration: Sudden Onset Timing: Constant Severity Initially: Moderate Severity Currently: Moderate Pain Intensity: 8 Pain Scale Used: 0-10 Numeric - Allergies/Home Medications Allergies/Adverse Reactions: Allergies Allergy/AdvReac Type Severity Reaction Status Date / Time morphine Allergy Intermediate Nausea Verified 06/24/18 10:21 PMH/Surg Hx/FS Hx/Imm Hx Endocrine History: Hypothyroidism Cardiovascular History: Hypertension - Surgical History Surgical History: Yes Surgery Procedure, Year, and Place: RIGHT KNEE REPLACEMENT. LEFT KNEE REPLACEMENT. 1/2 RIB REMOVED. KNEE REVISION hyster - Family History Known Family History: Positive: Other - neg: breast CA - Social History Occupation: Retired Alcohol Use: None Substance Use Type: None Smoking Status (MU): Former Smoker Amount Used/How Often: 1/2 PPD X 30 YEARS When Did the Patient Quit Smoking/Using Tobacco: 1982 - Immunization History Most Recent Influenza Vaccination: 2016 Review of Systems All Other Systems Reviewed And Are Negative: Yes Constitutional: Positive: Negative Skin: Positive: Negative Respiratory: Positive: Negative Cardiovascular: Positive: Negative Gastrointestinal: Positive: Negative Genitourinary: Positive: Negative Neurovascular: Positive: Negative Musculoskeletal: Positive: Other: - Left hip/buttock pain Neurological: Positive: Negative Psychological: Positive: Negative Physical Exam - Summary Physical Exam Summary: GENERAL: NAD. WDWN. No pain distress. SKIN: No rashes, sores, lesions, or open wounds. No ecchymosis. NECK: Supple. FROM. Nontender. CHEST: CTAB. No r/r/w. No accessory muscle use. Breathing comfortably and in no distress. CV: RRR. Without m/r/g. Pulses intact. Cap refill <2seconds MSK: TTP let posterior iliac crest. Pain with left hip abduction. Pain with flexion and extension of spine. Negative SLR b/l. Strength 5/5 B/L LEs including dorsiflexion and plantar flexion. FROM B/L LEs. No edema. NEURO: Alert. Sensations intact B/L LEs L3-S1. Reflexes intact PSYCH: Age appropriate behavior. Triage Information Reviewed: Yes Vital Signs: Initial Vital Signs Temp 98.4 F 06/24/18 10:18 Pulse 74 06/24/18 10:18 Resp 17 06/24/18 10:18 BP 155/81 06/24/18 10:18 Pulse Ox 100 06/24/18 10:18 Laboratory Tests 06/24/18 11:21 POC Urine Color Yellow POC Urine Clarity Clear POC Urine pH 6.0 POC Ur Specif [place] 1.020 POC Urine Protein Negative POC Ur Glucose (UA) Negative POC Urine Ketones Negative POC Urine Blood Negative POC Urine Nitrite Negative POC Urine Bilirubin Negative POC Urine Urobilinogen 0.2 POC U Leukocyte Esteras Negative Vital Signs Reviewed: Yes Back Pain Course/Dx - Course Course Of Treatment: CT: IMPRESSION: 1. Age-appropriate degenerative changes as described above without acute fracture or other. acute pelvic abnormality. 2. Nondependent foci of gas in the urinary bladder. Please correlate to recent bladder. instrumentation versus signs or symptoms of cystitis. UA negative. I suspect she is having a muscle strain or flare of arthritis in the area. Advised to continue to rest and apply heat/ice. Will rx for lidoderm patch to use for pain and have her f/u with her PCP if her symptoms do not improve. - Differential Dx/Diagnosis Provider Diagnosis: Hip pain Discharge - Sign-Out/Discharge Documenting (check all that apply): Patient Departure All imaging exams completed and their final reports reviewed: Yes - Discharge Plan Condition: Stable Disposition: HOME Prescriptions: Lidocaine PATCH 5%* [Lidoderm 5% Patch*] 1 patch TRANSDERM DAILY PRN #1 box PRN Reason: Pain Patient Education Materials: Hip Pain (ED) Referrals: Zev Zhao MD [Primary Care Provider] - Additional Instructions: If you develop a fever, shortness of breath, chest pain, new or worsening symptoms - please call your PCP or go to the ED. Your blood pressure was high at todays visit. Please see your primary provider within 4 weeks for recheck and re-evaluation. 1) Continue to rest and apply heat to your area of pain 2) If your pain does not improve in a couple of days - please follow up with your Primary Doctor - Billing Disposition and Condition Condition: STABLE Disposition: Home - Attestation Statements Provider Attestation: I was available for consult. This patient was seen by the ROSITA. The patient was not presented to, seen by, or examined by me. -Kal
== END 2018-06-24 12:00 | disposition home or self-care (01) ==
LOC: UCEAST 10:14
DX: M25.552 Pain in left hip (principal); V48.4XXA Person boarding or alighting a car injured in noncollision transport accident, initial encounter; Y92.9 Unspecified place or not applicable; Z88.5 Allergy status to narcotic agent; Z87.891 Personal history of nicotine dependence
CPT/HCPCS: 72192; 81003; 99212; G0463